=== PATIENT | female | born 1970 | race Hispanic/Latino ===

== ENCOUNTER 2017-08-02 20:04 | Emergency (ER) | payer SELFPAY ==
[~2017-08-02] VITALS: Ht 170.2 cm; Wt 62.1 kg
[2017-08-02] MEDS ORDERED: SODIUM CHLORIDE 0.9% 1000ML 1,000 ML IV ONE (20:45)
[2017-08-02 21:36] LABS: BASOPHILS % 0.3 % (0.0-1.0); EOSINOPHILS # (AUTO) 0.1 (0.0-0.4); EOSINOPHILS % 1.3 % (0.0-6.0); HEMATOCRIT 39.3 % (34.2-44.1); HEMOGLOBIN 12.4 g/dL (12.0-16.0); LYMPHOCYTES # (AUTO) 1.1 (1.0-3.2); LYMPHOCYTES % 9.6 % (18.0-39.1); MEAN CORPUSCULAR HEMOGLOBIN 28.1 pg (28-32); MEAN CORPUSCULAR HGB CONC 31.6 g/dL (31-35); MEAN CORPUSCULAR VOLUME 89.1 fL (81-99); MONOCYTES # (AUTO) 0.4 (0.2-0.8); MONOCYTES % 3.7 % (4.4-11.3); NEUTROPHILS # (AUTO) 9.4 (2.1-6.9); NEUTROPHILS % 84.8 % (38.7-80.0); PLATELET COUNT 441 x10e3/uL (140-360); RED BLOOD COUNT 4.41 x10e6/uL (3.6-5.1); RED CELL DISTRIBUTION WIDTH 13.1 % (11.7-14.4)
[2017-08-02 21:41] LABS: BILIRUBIN,URINE NEGATIVE (NEGATIVE); CLARITY,URINE SL CLOUDY (CLEAR); COLOR,URINE YELLOW (YELLOW); KETONES,URINE NEGATIVE (NEGATIVE); LEUKOCYTE ESTERASE ,URINE NEGATIVE (NEGATIVE); NITRITE,URINE NEGATIVE (NEGATIVE); PROTEIN,URINE DIPSTICK 1+ (NEGATIVE); URINE UROBILINOGEN 0.2 mg/dL (0.2 - 1)
[2017-08-02 21:44] LABS: AMPHETAMINES SCREEN,URINE NEGATIVE (NEGATIVE); BENZODIAZEPINES SCREEN,URINE NEGATIVE (NEGATIVE); PHENCYCLIDINE SCREEN,URINE NEGATIVE (NEGATIVE)
[2017-08-02] MEDS ORDERED: ONDANSETRON HCL INJ 2 MG/ML VIAL IV STA (21:45)
[2017-08-02 21:53] LABS: EPITHELIAL CELLS,URINE MANY /LPF; MUCUS,URINE MODERATE (RARE)
[2017-08-02 21:57] LABS: ALANINE AMINOTRANSFERASE 14 IU/L (0-55); ALBUMIN 4.1 g/dL (3.5-5.0); ALBUMIN/GLOBULIN RATIO 1.3 (0.8-2.0); ALKALINE PHOSPHATASE 72 IU/L (40-150); ANION GAP 15.2 mmol/L (8-16); BLOOD UREA NITROGEN 8 mg/dL (7-26); BUN/CREATININE RATIO 9 (6-25); CALCIUM 9.4 mg/dL (8.4-10.2); CARBON DIOXIDE 25 mmol/L (22-29); CHLORIDE 106 mmol/L (98-107); CREATINE KINASE 138 IU/L (29-168); CREATININE, SERUM 0.88 mg/dL (0.57-1.11); EST GLOMERULAR FILTRATION RATE > 60 ML/MIN (60-); GLUCOSE 88 mg/dL (74-118); POTASSIUM 3.2 mmol/L (3.5-5.1); SODIUM 143 mmol/L (136-145)
[2017-08-02 22:10] LABS: SALICYLATE < 5.0 mg/dL (0-30)
[2017-08-02 22:46] LABS: ACETAMINOPHEN < 3 ug/mL (10-30)
[2017-08-03 01:59] VITALS: BP_SYST 111
== END 2017-08-03 02:10 | disposition home or self-care (01) ==
LOC: ER 20:04
DX: T45.0X1A Poisoning by antiallergic and antiemetic drugs, accidental (unintentional), initial encounter (principal); Y92.019 Unspecified place in single-family (private) house as the place of occurrence of the external cause
CPT/HCPCS: 36415; 80053; 80307; 80329 ×2; 81001; 82550; 82553; 84484; 85025; 93005; 99283; J2405; J7030

== ENCOUNTER 2019-02-26 12:26 | Emergency (ER) | payer MEDICARE ==
[~2019-02-26] VITALS: Ht 170.2 cm; Wt 62.1 kg
--- OUTSIDE RECORDS SUMMARY | 2019-02-26 12:29 | XMS REPORT ---
Author Author [facility] Address Unknown Phone Unavailable Care Team Providers Care Notch Grinder Name Role Phone Unavailable Unavailable Payers Payer Name Policy Type Policy Number Effective Date Expiration Date Problems This patient has no known problems. Allergies, Adverse Reactions, Alerts Allergy Name Allergy Type Status Severity Reaction(s) Onset Date Inactive Date Treating Clinician Comments No Known Allergies DA Active U 2019-02-10 00:00:00 No Known Allergies DA Active U 2017-09-11 00:00:00 Medications This patient has no known medications. Encounters Start Date/Time End Date/Time Encounter Type Admission Type Attending Clinicians Care Facility Care Department Encounter ID 2019-04-08 00:00:00 2019-04-08 00:00:00 Outpatient [facility] [id number] 2019-03-31 00:00:00 2019-03-31 00:00:00 Outpatient [facility] [id number] 2019-03-04 00:00:00 2019-03-04 00:00:00 Outpatient [facility] [id number] 2019-02-18 00:00:00 2019-02-18 00:00:00 Outpatient [facility] [id number] 2019-01-30 13:17:38 2019-01-30 13:17:38 Outpatient [facility] [id number] 2019-01-22 12:25:32 2019-01-22 12:25:32 Outpatient [facility] [id number] 2019-01-22 00:00:00 2019-01-22 00:00:00 Outpatient [facility] [id number] 2019-01-16 00:00:00 2019-01-16 00:00:00 Outpatient [facility] [id number] 2019-01-10 00:00:00 2019-01-10 00:00:00 Outpatient [facility] [id number] 2019-01-10 00:00:00 2019-01-10 00:00:00 Outpatient [facility] [id number] 2019-01-09 09:41:39 2019-01-09 09:41:39 Outpatient [facility] [id number] 2019-01-08 07:50:57 2019-01-08 07:50:57 Outpatient [facility] [id number] 2019-01-08 00:00:00 2019-01-08 00:00:00 Outpatient [facility] [id number] 2018-12-25 09:12:49 2018-12-25 09:12:49 Outpatient [facility] [id number] 2018-12-25 00:00:00 2018-12-25 00:00:00 Outpatient [facility] [id number] 2018-12-25 00:00:00 2018-12-25 00:00:00 Outpatient [facility] [id number] 2018-12-25 00:00:00 2018-12-25 00:00:00 Outpatient [facility] [id number] 2018-12-24 08:33:31 2018-12-24 08:33:31 Outpatient [facility] [id number] 2018-12-24 08:31:11 2018-12-24 08:31:11 Outpatient [facility] [id number] 2018-12-23 08:11:16 2018-12-23 08:11:16 Outpatient [facility] [id number] 2018-12-19 16:23:49 2018-12-19 16:23:49 Outpatient [facility] [id number] 2018-12-19 15:52:50 2018-12-19 15:52:50 Outpatient [facility] [id number] 2018-12-19 14:00:01 2018-12-19 14:00:01 Outpatient [facility] [id number] 2018-12-19 00:00:00 2018-12-19 00:00:00 Outpatient [facility] [id number] 2018-12-19 00:00:00 2018-12-19 00:00:00 Outpatient [facility] [id number] 2018-12-17 00:00:00 2018-12-17 00:00:00 Outpatient [facility] [id number] 2018-12-13 00:00:00 2018-12-13 00:00:00 Outpatient [facility] [id number] 2018-12-06 14:51:11 2018-12-06 14:51:11 Outpatient [facility] [id number] 2018-12-03 14:34:08 2018-12-03 14:34:08 Outpatient [facility] [id number] 2018-12-03 12:49:16 2018-12-03 12:49:16 Outpatient [facility] [id number] 2018-12-03 00:00:00 2018-12-03 00:00:00 Outpatient [facility] [id number] 2018-11-25 00:00:00 2018-11-25 00:00:00 Outpatient [facility] [id number] 2018-11-25 00:00:00 2018-11-25 00:00:00 Outpatient [facility] [id number] 2018-11-21 08:26:30 2018-11-21 08:26:30 Outpatient [facility] [id number] 2018-11-14 09:49:36 2018-11-14 09:49:36 Outpatient [facility] [id number] 2018-11-12 12:45:02 2018-11-12 12:45:02 Outpatient [facility] [id number] 2018-11-07 10:15:37 2018-11-07 10:15:37 Outpatient [facility] [id number] 2018-11-04 00:00:00 2018-11-04 00:00:00 Outpatient [facility] [id number] 2018-11-04 00:00:00 2018-11-04 00:00:00 Outpatient [facility] [id number] 2018-10-25 12:48:03 2018-10-25 12:48:03 Outpatient [facility] [id number] 2018-10-18 00:00:00 2018-10-18 00:00:00 Outpatient [facility] [id number] 2018-10-17 00:00:00 2018-10-17 00:00:00 Outpatient [facility] [id number] 2018-10-10 09:47:24 2018-10-10 09:47:24 Outpatient [facility] [id number] 2018-09-27 09:17:55 2018-09-27 09:17:55 Outpatient [facility] [id number] 2018-09-26 12:55:38 2018-09-26 12:55:38 Outpatient [facility] [id number] 2018-09-26 11:59:44 2018-09-26 11:59:44 Outpatient [facility] [id number] 2018-09-26 10:24:59 2018-09-26 10:24:59 Outpatient [facility] [id number] 2018-08-09 12:26:12 2018-08-09 12:26:12 Outpatient [facility] [id number] 2018-08-05 13:01:30 2018-08-05 13:01:30 Outpatient [facility] [id number] 2018-07-25 10:15:33 2018-07-25 10:15:33 Outpatient [facility] [id number] 2018-07-12 13:42:40 2018-07-12 13:42:40 Outpatient [facility] [id number] 2018-07-03 21:57:48 2018-07-03 21:57:48 Emergency [facility] [id number] 2018-07-03 20:01:25 2018-07-03 20:01:25 Emergency [facility] [id number] 2018-07-02 19:19:00 2018-07-02 19:19:00 Emergency [facility] [id number] 2018-06-28 06:19:00 2018-06-28 06:19:00 Outpatient [facility] [id number] 2018-06-28 00:00:00 2018-06-28 00:00:00 Outpatient [facility] [id number] 2018-06-21 13:33:08 2018-06-21 13:33:08 Outpatient [facility] [id number] 2018-06-21 11:30:50 2018-06-21 11:30:50 Outpatient [facility] [id number] 2018-06-21 00:00:00 2018-06-21 00:00:00 Outpatient [facility] [id number] 2018-06-20 00:00:00 2018-06-20 00:00:00 Outpatient [facility] [id number] 2018-06-19 09:17:31 2018-06-19 09:17:31 Outpatient [facility] [id number] 2018-06-13 00:00:00 2018-06-13 00:00:00 Outpatient [facility] [id number] 2018-06-13 00:00:00 2018-06-13 00:00:00 Outpatient [facility] [id number] 2018-06-03 14:59:57 2018-06-03 14:59:57 Outpatient [facility] [id number] 2018-05-31 11:54:25 2018-05-31 11:54:25 Outpatient [facility] [id number] 2018-05-22 00:00:00 2018-05-22 00:00:00 Outpatient [facility] [id number] 2018-05-16 13:20:06 2018-05-16 13:20:06 Outpatient [facility] [id number] 2018-04-25 13:06:31 2018-04-25 13:06:31 Outpatient [facility] [id number] 2018-04-19 09:19:49 2018-04-19 09:19:49 Outpatient [facility] [id number] 2018-04-12 12:04:38 2018-04-12 12:04:38 Emergency [facility] [id number] 2018-04-12 11:25:56 2018-04-12 11:25:56 Emergency [facility] [id number] 2018-04-12 09:45:17 2018-04-12 09:45:17 Outpatient [facility] [id number] 2018-03-28 09:05:15 2018-03-28 09:05:15 Outpatient [facility] [id number] 2018-03-26 13:08:11 2018-03-26 13:08:11 Outpatient [facility] [id number] 2018-03-18 00:00:00 2018-03-18 00:00:00 Outpatient [facility] [id number] 2018-03-11 00:00:00 2018-03-11 00:00:00 Outpatient [facility] [id number] 2018-03-06 10:00:27 2018-03-06 10:00:27 Outpatient [facility] [id number] 2018-03-05 13:15:17 2018-03-05 13:15:17 Outpatient [facility] [id number] 2018-03-01 08:07:34 2018-03-01 08:07:34 Outpatient [facility] [id number] 2018-02-26 13:16:53 2018-02-26 13:16:53 Outpatient [facility] [id number] 2018-02-19 11:28:40 2018-02-19 11:28:40 Outpatient [facility] [id number] 2018-02-13 06:04:00 2018-02-13 06:04:00 Outpatient [facility] [id number] 2018-02-11 13:38:12 2018-02-11 13:38:12 Outpatient [facility] [id number] 2018-02-01 14:16:59 2018-02-01 14:16:59 Outpatient [facility] [id number] 2018-01-30 09:09:53 2018-01-30 09:09:53 Outpatient [facility] [id number] 2018-01-28 13:03:47 2018-01-28 13:03:47 Outpatient [facility] [id number] 2018-01-22 06:02:00 2018-01-22 06:02:00 Outpatient [facility] [id number] 2018-01-22 00:00:00 2018-01-22 00:00:00 Outpatient [facility] [id number] 2018-01-15 12:47:27 2018-01-15 12:47:27 Outpatient [facility] [id number] 2018-01-15 00:00:00 2018-01-15 00:00:00 Outpatient [facility] [id number] 2018-01-11 08:48:06 2018-01-11 08:48:06 Outpatient [facility] [id number] 2018-01-10 09:39:04 2018-01-10 09:39:04 Outpatient [facility] [id number] 2018-01-10 00:00:00 2018-01-10 00:00:00 Outpatient [facility] [id number] 2018-01-08 12:51:43 2018-01-08 12:51:43 Outpatient [facility] [id number] 2018-01-07 09:01:56 2018-01-07 09:01:56 Outpatient [facility] [id number] 2018-01-07 00:00:00 2018-01-07 00:00:00 Outpatient [facility] [id number] 2018-01-01 10:29:41 2018-01-01 10:29:41 Outpatient [facility] [id number] 2017-12-24 13:44:22 2017-12-24 13:44:22 Outpatient [facility] [id number] 2017-12-24 00:00:00 2017-12-24 00:00:00 Outpatient [facility] [id number] 2017-12-19 07:17:59 2017-12-19 07:17:59 Outpatient [facility] [id number] 2017-12-18 11:16:21 2017-12-18 11:16:21 Outpatient [facility] [id number] 2017-12-13 10:53:02 2017-12-13 10:53:02 Outpatient [facility] [id number] 2017-12-11 07:35:50 2017-12-11 07:35:50 Outpatient [facility] [id number] 2017-12-06 17:26:00 2017-12-06 17:26:00 Emergency [facility] [id number] 2017-11-16 14:25:45 2017-11-16 14:25:45 Outpatient [facility] [id number] 2017-11-13 08:23:24 2017-11-13 08:23:24 Outpatient [facility] [id number] 2017-11-05 08:56:07 2017-11-05 08:56:07 Outpatient [facility] [id number] 2017-11-01 14:28:32 2017-11-01 14:28:32 Outpatient [facility] [id number] 2017-11-01 13:19:27 2017-11-01 13:19:27 Outpatient [facility] [id number] 2017-10-29 18:00:27 2017-10-29 18:00:27 Outpatient [facility] [id number] 2017-10-29 10:36:29 2017-10-29 10:36:29 Outpatient [facility] [id number] 2017-10-23 10:29:55 2017-10-23 10:29:55 Outpatient [facility] [id number] 2017-09-25 11:23:36 2017-09-25 11:23:36 Emergency [facility] [id number] 2017-09-25 11:17:34 2017-09-25 11:17:34 Emergency [facility] [id number]
[2019-02-26] MEDS ORDERED: NEOMYCIN/POLYMYX/HYDROC (OTIC) 10 ML BTL OT STA (13:09)
[2019-02-26 13:12] VITALS: BP 116/55
[2019-02-26] MEDS ORDERED: CORTISPORIN-TC10 ML RIGHT EAR (13:38)
== END 2019-02-26 13:48 | disposition home or self-care (01) ==
LOC: ER 12:26
DX: H60.91 Unspecified otitis externa, right ear (principal); H60.11 Cellulitis of right external ear; J45.909 Unspecified asthma, uncomplicated; K21.9 Gastro-esophageal reflux disease without esophagitis
CPT/HCPCS: 99282

== ENCOUNTER → 2019-09-16 | Day surgery (SDC) | payer OTHER ==
[2019-09-12 14:10] LABS: BASOPHILS % 0.4 % (0.0-1.0); EOSINOPHILS # (AUTO) 0.3 (0.0-0.4); EOSINOPHILS % 2.5 % (0.0-6.0); HEMATOCRIT 44.9 % (34.2-44.1); HEMOGLOBIN 14.5 g/dL (12.0-16.0); LYMPHOCYTES # (AUTO) 1.8 (1.0-3.2); LYMPHOCYTES % 17.5 % (18.0-39.1); MEAN CORPUSCULAR HEMOGLOBIN 28.9 pg (28-32); MEAN CORPUSCULAR HGB CONC 32.3 g/dL (31-35); MEAN CORPUSCULAR VOLUME 89.6 fL (81-99); MONOCYTES # (AUTO) 0.5 (0.2-0.8); MONOCYTES % 5.2 % (4.4-11.3); NEUTROPHILS # (AUTO) 7.6 (2.1-6.9); NEUTROPHILS % 74.1 % (38.7-80.0); PLATELET COUNT 429 x10e3/uL (140-360); RED BLOOD COUNT 5.01 x10e6/uL (3.6-5.1); RED CELL DISTRIBUTION WIDTH 13.1 % (11.7-14.4)
--- NOTE | 2019-09-12 14:48 | Diagnostic Imaging Report ---
EXAMINATION: CHEST 2 VIEWS INDICATION: Pre-operative COMPARISON: None FINDINGS: LINES/TUBES:None LUNGS:The lungs are well-inflated. No focal consolidation or pulmonary edema. PLEURA:No pleural effusion or pneumothorax. MEDIASTINUM:The cardiomediastinal silhouette appears normal in size and shape. BONES/SOFT TISSUES:No acute osseous injury. ABDOMEN:No free air under the diaphragm. IMPRESSION: No focal pneumonia or pulmonary edema. Signed by: Hoang Sharp MD on 09/12/2019 2:44 PM
[~2019-09-16] MED LIST: ACETAMINOPHEN325 M1 PO; ADVAIR 250-501 EACH INH; BENZONATATE100 MG PO; CEFAZOLIN SOD 1 GM/NS 50ML 50 ML IV ONE; CORTISPORIN-TC10 ML RIGHT EAR; DEXAMETHASONE SOD PHOS INJ 4 MG/ML VIAL ONE; DIPHENHYDRAMINE HCL INJ 50 MG/ML VIAL ONE; FENTANYL CITRATE/PF 100MCG/2 ML INJ ONE; KETOROLAC TROMETHAMINE 30 MG/ML VIAL ONE; LIDOCAINE HCL 2% LOCAL INJ 5 ML SDV VIAL INJ ONE; METOCLOPRAMIDE HCL 10 MG/2ML VIAL ONE; MIDAZOLAM HCL 2 MG/2 ML VIAL ONE; OMEPRAZOLE40 MG PO; ONDANSETRON HCL INJ 2MG/ML 2ML 2 MG/ML VIAL ONE; PROPOFOL IV EMULSION 10 MG/ML 20 ML VIAL ONE; PROVENTIL HFA6.7 GM INH; SEVOFLURANE INHAL SOLN 250 ML PEN BTL ONE; TYLENOL WITH C1 EACH PO
--- OUTSIDE RECORDS SUMMARY | 2019-09-16 05:43 | XMS REPORT | Clinical Summary ---
Author Author [facility] ict Organization [facility] ict Address Unknown Phone Unavailable Care Team Providers Care Miner Assistant Name Role Phone Ileana Cheema MD PCP Gabriela Green NP PCP Allergies Comments Active Allergy Reactions Severity Noted Date Tomato Itching 03/06/2018 Tramadol Itching, 11/16/2017 Nausea and Vomiting Medications End Date Status Medication Sig Dispensed Refills Start Date Active ferrous sulfate 325 mg Take 1 tablet 60 tablet 3 0 (65 mg iron) by mouth 2 9 tabletIndications: times daily. Abnormal uterine bleeding, Iron deficiency anemia due to chronic blood loss Active diclofenac (VOLTAREN) 1 % Apply 2 g to 100 g 1 gelIndications: affected area 9 Arthralgia of left knee, 4 times daily Primary osteoarthritis of Apply to left left knee, Pain in joint knee and left of left shoulder, Rotator shoulder as cuff tendonitis, left needed. Active fluticasone Inhale 1 Puff 180 Each 1 propion-salmeterol by mouth 2 9 (ADVAIR DISKUS) 250-50 times daily. mcg/dose diskus inhalerIndications: Moderate persistent asthma with acute exacerbation Active clobetasol propionate Apply to 30 g 2 (TEMOVATE E) 0.05 % affected area 0 emollient 2 times creamIndications: Other daily. specified dermatitis Active omeprazole (PRILOSEC) 20 Take 1 90 capsule 1 0 mg delayed release capsule by 0 capsuleIndications: mouth daily. Gastroesophageal reflux disease without esophagitis Active gabapentin (NEURONTIN) Take 1 90 capsule 0 300 mg capsule by 0 capsuleIndications: Acute mouth 3 times pain of left knee daily. Active codeine-guaiFENesin Take 5 mL by 120 mL 0 07/06 (CHERATUSSIN AC) 10-100 mouth 3 times 0 mg/5 mL syrupIndications: daily as Chronic bronchitis with needed for productive mucopurulent Cough or cough Congestion. Active ibuprofen (MOTRIN) 600 mg Take 1 tablet 30 tablet 0 tabletIndications: Right by mouth 0 elbow pain every 8 hours as needed for Pain. Active albuterol 90 Inhale 2 18 g 1 mcg/actuation Puffs by 0 inhalerIndications: mouth every 4 History of asthma hours as needed for Wheezing or Shortness of Breath (Cough) Please fill today. 04/01/2019 Discontinued albuterol 90 Inhale 2 20.1 g 0 mcg/actuation Puffs by 8 inhalerIndications: mouth 4 times Moderate persistent daily as asthma with acute needed for exacerbation Wheezing. 04/01/2019 Discontinued fluticasone Inhale 1 Puff 180 Each 1 propion-salmeterol by mouth 2 8 (ADVAIR DISKUS) 250-50 times daily. mcg/dose diskus inhalerIndications: Moderate persistent asthma with acute exacerbation 06/02/2019 Discontinued (Reorder) clobetasol propionate Apply to 30 g 2 03/31 (TEMOVATE E) 0.05 % affected area 8 emollient 2 times creamIndications: Other daily. specified dermatitis 09/27/2018 Discontinued (Reorder) acetaminophen-codeine Take 1 tablet 30 tablet 0 (TYLENOL/CODEINE #3) by mouth 9 300-30 mg per every 4 hours tabletIndications: as needed for Complex tear of lateral Pain. meniscus of left knee as current injury, initial encounter 09/27/2018 Discontinued (Reorder) ibuprofen (MOTRIN) 600 mg Take 1 tablet 30 tablet 0 tabletIndications: Right by mouth 9 elbow pain every 8 hours as needed for Pain. 06/16/2019 Discontinued (Reorder) gabapentin (NEURONTIN) Take 1 30 capsule 0 300 mg capsule by 9 capsuleIndications: Acute mouth 3 times pain of left knee daily. 12/03/2018 Discontinued (Therapy comple val) omeprazole (PRILOSEC) 20 Take 1 28 capsule 0 0 mg delayed release capsule by 9 capsuleIndications: mouth 2 times Gastroesophageal reflux daily. disease with esophagitis 09/27/2018 sodium hyaluronate 2 mL by 6 mL 0 01 (HYALGAN) 10 mg/mL INTRA-ARTICUL 9 injectionIndications: AR route once Arthralgia of left knee, for 1 dose Primary osteoarthritis of Please left knee dispense 3 prefilled syringes of hyalgan (20mg/2ml) for series of three weekly injections into left knee to be administered in clinic. 01/24/2019 Discontinued (Therapy comple val) esomeprazole (NEXIUM) 20 Take 1 90 capsule 0 0 mg delayed release capsule by 9 capsuleIndications: mouth every Gastroesophageal reflux morning disease, esophagitis (before presence not specified breakfast). 03/04/2019 Discontinued (Reorder) ibuprofen (MOTRIN) 600 mg Take 1 tablet 30 tablet 0 tabletIndications: Right by mouth 9 elbow pain every 8 hours as needed for Pain. 07/07/2019 Discontinued (Therapy comple val) acetaminophen-codeine Take 1 tablet 30 tablet 0 (TYLENOL/CODEINE #3) by mouth 9 300-30 mg per every 8 hours tabletIndications: as needed for Complex tear of lateral Pain. meniscus of left knee as current injury, initial encounter 01/14/2019 azithromycin (ZITHROMAX) Take 2 6 Each 0 0 250 mg tabletIndications: tablets by 9 Acute bronchitis, mouth on the unspecified organism first day, then take one tablet every day for the next 4 days. 02/16/2019 Bismuth Subcit Take 3 120 capsule 0 Q-Ebbhjwzwr-LEX (PYLERA) capsules by 9 140-125-125 mg delayed mouth 4 times release daily (after capsuleIndications: H. meals and pylori infection nightly) for 10 days. 02/16/2019 omeprazole (PRILOSEC) 20 Take 2 40 capsule 0 0 mg delayed release capsules by 9 capsuleIndications: H. mouth 2 times pylori infection daily for 10 days. 03/10/2019 methylPREDNISolone Follow 21 tablet 0 (MEDROL, ANNELISE,) 4 mg dose directions 9 packIndications: Plantar from dose fascial fibromatosis pack and/or instructions from MD. 03/14/2019 levoFLOXacin (LEVAQUIN) Take 1 tablet 10 tablet 0 750 mg tabletIndications: by mouth 9 Hearing loss of right daily for 10 ear, unspecified hearing days. loss type, Chronic suppurative otitis media of right ear, unspecified otitis media location 06/02/2019 Discontinued (Reorder) ibuprofen (MOTRIN) 600 mg Take 1 tablet 30 tablet 0 tabletIndications: Right by mouth 9 elbow pain every 8 hours as needed for Pain. 04/01/2019 Discontinued esomeprazole (NEXIUM) 20 Take 1 90 capsule 0 1 mg delayed release capsule by 9 capsuleIndications: mouth every Gastroesophageal reflux morning disease, esophagitis (before presence not specified breakfast). 03/19/2019 fluconazole (DIFLUCAN) Take 1 tablet 1 tablet 0 1 150 mg tabletIndications: by mouth once 9 Vaginitis and for 1 dose. vulvovaginitis 06/16/2019 Discontinued (Reorder) albuterol 90 Inhale 2 20.1 g 0 mcg/actuation Puffs by 9 inhalerIndications: mouth 4 times Moderate persistent daily as asthma with acute needed for exacerbation Wheezing. 06/06/2019 Discontinued (Alternate ther apy) esomeprazole (NEXIUM) 20 Take 1 90 capsule 0 1 mg delayed release capsule by 9 capsuleIndications: mouth every Gastroesophageal reflux morning disease, esophagitis (before presence not specified breakfast). 07/17/2019 Discontinued ibuprofen (MOTRIN) 600 mg Take 1 tablet 30 tablet 0 tabletIndications: Right by mouth 0 elbow pain every 8 hours as needed for Pain. 07/10/2019 Discontinued albuterol 90 Inhale 2 20.1 g 0 mcg/actuation Puffs by 0 inhalerIndications: mouth 4 times Moderate persistent daily as asthma with acute needed for exacerbation Wheezing. 07/07/2019 Discontinued (Reorder) codeine-guaiFENesin Take 5 mL by 120 mL 0 06/16 (CHERATUSSIN AC) 10-100 mouth 3 times 0 mg/5 mL syrupIndications: daily as Chronic bronchitis with needed for productive mucopurulent Cough or cough Congestion. 06/21/2019 azithromycin (ZITHROMAX) Take 2 6 Each 0 0 250 mg tabletIndications: tablets by 0 Chronic bronchitis with mouth on the productive mucopurulent first day, cough then take one tablet every day for the next 4 days. 07/17/2019 Discontinued (Reorder) albuterol 90 Inhale 2 18 g 0 mcg/actuation Puffs by 0 inhalerIndications: mouth 4 times Moderate persistent daily as asthma with acute needed for exacerbation Wheezing. 09/02/2019 Discontinued (Reorder) albuterol 90 Inhale 2 18 g 1 mcg/actuation Puffs by 0 inhalerIndications: mouth 4 times Moderate persistent daily as asthma with acute needed for exacerbation Wheezing. 09/12/2019 benzonatate (TESSALON Take 1 20 capsule 0 PERLES) 100 mg capsule by 0 capsuleIndications: Cough mouth 3 times daily as needed for up to 7 days for Cough Please fill today. Status Hospital, Clinic, or Ordered Dose Route Frequency Start End Date Other Facility Date Administered Medication Active albuterol (PROVENTIL) 2.5 2.5 mg IN PRN 07/07/19 mg /3 mL (0.083 %) 20 0 nebulized solution 2.5 mgIndications: Chronic bronchitis with productive mucopurulent cough Ended triamcinolone acetonide 40 mg IX ONCE 09/27/19 (KENALOG-40) injection 40 19 9 mgIndications: Arthralgia of left knee, Primary osteoarthritis of left knee, Effusion of left knee Ended lidocaine (PF) 10 mL IJ ONCE 09/27/19 09/27/19 1 (XYLOCAINE) 10 mg/mL (1 19 9 %) injection 10 mLIndications: Arthralgia of left knee, Primary osteoarthritis of left knee, Effusion of left knee Ended povidone-iodine 1 Application TP ONCE 09/27/19 (BETADINE) 10 % topical 19 9 applicator 1 ApplicationIndications: Arthralgia of left knee, Primary osteoarthritis of left knee, Effusion of left knee Ended povidone-iodine 1 Application TP ONCE 09/27/19 (BETADINE) 10 % topical 19 9 applicator 1 Application Ended lidocaine 2%-epinephrine 40 mL IJ ONCE 09/27/19 1:100,000 2 %-1:100,000 19 9 injection 40 mL Ended aecdtvay-lwsgbxuim-vsdofn 1 Packet TP 3 TIMES DAILY 08/30 daisy (TRIPLE ANTIBIOTIC) 19 9 topical packet 1 Packet Ended triamcinolone acetonide 40 mg IX ONCE 10/11/19 (KENALOG-40) injection 40 19 9 mgIndications: Arthralgia of left shoulder region, Tendinitis of left rotator cuff Ended lidocaine (PF) 10 mL IJ ONCE 10/11/19 10/11/19 1 (XYLOCAINE) 10 mg/mL (1 19 9 %) injection 10 mLIndications: Arthralgia of left shoulder region, Tendinitis of left rotator cuff Ended povidone-iodine 1 Application TP ONCE 10/11/19 (BETADINE) 10 % topical 19 9 applicator 1 ApplicationIndications: Arthralgia of left shoulder region, Tendinitis of left rotator cuff Ended povidone-iodine 1 Application TP ONCE 11/08/19 (BETADINE) 10 % topical 19 9 applicator 1 Application Ended povidone-iodine 1 Application TP ONCE 11/15/19 (BETADINE) 10 % topical 19 9 applicator 1 ApplicationIndications: Arthralgia of left knee, Primary osteoarthritis of left knee Ended povidone-iodine 1 Application TP ONCE 12/24/19 (BETADINE) 10 % topical 19 9 applicator 1 ApplicationIndications: Arthralgia of left knee, Primary osteoarthritis of left knee Ended triamcinolone acetonide 40 mg IX ONCE 01/31/20 (KENALOG-40) injection 40 19 9 mgIndications: Arthralgia of left shoulder region Ended lidocaine (PF) 10 mL IJ ONCE 01/31/20 01/31/20 1 (XYLOCAINE) 10 mg/mL (1 19 9 %) injection 10 mLIndications: Arthralgia of left shoulder region Active Problems Problem Noted Date Primary osteoarthritis of left knee 11/07/2018 Abnormal uterine bleeding (AUB) 06/06/2018 Overview: Added automatically from request for mundo pryor [id number] Fibroids, intramural 05/31/2018 Pelvic pain 05/31/2018 Impaired gait and mobility 02/19/2018 Chronic periodontitis, generalized, moderate 018 Lateral meniscus tear 01/22/2018 Overview: Added automatically from request for mundo pryor [id number] Complex tear of lateral meniscus of left knee as curr ent injury 01/07/2018 Overview: Added automatically from request for mundo pryor [id number] Abnormal uterine bleeding 01/01/2018 Chronic periodontitis 12/13/2017 Iron deficiency anemia 11/13/2017 Arthralgia of left knee 09/25/2017 Encounters Care Team Description Date Type Specialty Doug Allen, TATO Ingrowing nail (Primary Dx) 09/09/2019 Office Visit Podiatry Hazel Ocampo NP Cough (Primary Dx); History of asthma 09/02/2019 E-Visit Family Practice Garima Calle RN 07/25/2019 Nurse Triage Ileana Cheema MD Right elbow pain; Chronic bronchitis with productive mucopurulent cough 07/17/2019 Refill [facility] Ileana Cheema MD Moderate persistent asthma with acute ex acerbation 07/17/2019 Refill Family Practice Ileana Cheema MD Moderate persistent asthma with acute ex acerbation 07/10/2019 Refill [facility] Ileana Cheema MD Chronic bronchitis with productive mucop urulent cough (Primary Dx) 07/07/2019 Office Visit [facility] Ileana Cheema MD Chronic bronchitis with productive mucop urulent cough 07/07/2019 Orders Only Family Practice Ileana Cheema MD Moderate persistent asthma with acute ex acerbation 06/16/2019 Ancillary Radiology Procedure Ileana Cheema MD Chronic bronchitis with productive mucop urulent cough (Primary Dx); Moderate persistent asthma with acute exacerbation; Acute pain of left knee 06/16/2019 Office Visit Family Practice Ileana Cheema MD Gastroesophageal reflux disease without esophagitis (Primary Dx) 06/06/2019 Orders Only [facility] Practice Gal Whittington Jr., MD Right elbow pain 06/02/2019 Refill Family Practice Ileana Cheema MD Other specified dermatitis 06/02/2019 Refill Family Practice Ileana Cheema MD Moderate persistent asthma with acute ex acerbation; Gastroesophageal reflux disease, esophagitis presence not specified 04/01/2019 Refill Family Practice Corwin Brantley MD Impacted cerumen of right ear (Primary D x) 03/24/2019 Office Visit Ent-Otolaryngology Roxana Faria RN 03/12/2019 Nurse Triage Mayuri Bill 03/11/2019 Nutrition Nutrition Hesham Mejia RN 03/11/2019 Clinical Case Social Work Mgt Ileana Cheema MD Shelton, George Jr., MD Need for influenza vaccination (Primary Dx); Hearing loss of right ear, unspecified hearing loss type; Chronic suppurative otitis media of right ear, unspecified otitis media location; Right elbow pain 03/04/2019 Office Visit [facility] Doug Allen, TATO Plantar fascial fibromatosis 03/04/2019 Ancillary Radiology Procedure Ileana Cheema MD Griert, Jeffery M, TATO Plantar fascial fibromatosis (Primary Dx ) 03/04/2019 Office Visit Podiatry Gal Whittington Jr., MD Hearing loss of right ear, unspecified h earing loss type; Chronic suppurative otitis media of right ear, unspecified otitis media location 03/04/2019 Orders Only Family Practice Kourtney Gong RN 02/10/2019 Nurse Triage Bob Bell RN 02/10/2019 Nurse Triage Bob Bell RN 02/09/2019 Nurse Triage Kerline Velez MD Acute pain of left knee 02/04/2019 Refill tool chaser Margareth Malone MD Arthralgia of left shoulder region (Prim francoise Dx); Tendinitis of left rotator cuff; Primary osteoarthritis of left knee 01/30/2019 Office Visit Orthopedics Margareth Malone MD Arthralgia of left shoulder region; Tendinitis of left rotator cuff; Primary osteoarthritis of left knee 01/30/2019 Orders Only Orthopedics Amy Meadows NP History of Helicobacter pylori infection (Primary Dx); H. pylori infection 01/24/2019 Orders Only Gastroenterology Mayuri Esteban, Physician Mounika Ramirez ResidentMD 01/22/2019 Anesthesia Gastroenterology Event Amy Meadows NP Munot, Khushboo, MD Arthralgia of left knee (Primary Dx); Chronic periodontitis; Abnormal uterine bleeding; Chronic periodontitis, generalized, moderate; Impaired gait and mobility; Fibroids, intramural; Pelvic pain; Abnormal uterine bleeding (AUB); Primary osteoarthritis of left knee 01/22/2019 Hospital Encounter Izabela Rojas MD Palpitations (Primary Dx); Acute bronchitis, unspecified organism 01/09/2019 Office Visit Family Practice Leighann Corona NP Tzan, Kevin, MD 01/08/2019 Hospital Encounter Ileana Cheema MD Hypoglycemia; Hypotension, unspecified hypotension type 12/25/2018 Lab Appointment Lab Frantz Mays MD Hypoglycemia (Primary Dx); Hypotension, unspecified hypotension type 12/25/2018 Orders Only [facility] Ileana Cheema MD Alanis, Melissa R 12/24/2018 Hospital Cardiology Encounter Ileana Cheema MD 12/24/2018 Hospital Encounter Margareth Malone MD Arthralgia of left knee (Primary Dx); Primary osteoarthritis of left knee; Pain in joint of left shoulder; Rotator cuff tendonitis, left 12/23/2018 Office Visit Orthopedics Margareth Malone MD Pain in joint of left shoulder; Rotator cuff tendonitis, left 12/23/2018 Orders Only Orthopedics Ileana Cheema MD Right wrist pain 12/19/2018 Ancillary Radiology Procedure Ileana Cheema MD Hypotension, unspecified hypotension typ e (Primary Dx); Hypoglycemia; Right wrist pain; Impacted cerumen, right ear 12/19/2018 Office Visit [facility] Amy Meadows NP Abnormal UGI series (Primary Dx) 12/09/2018 Orders Only Gastroenterology Rogelio Canseco MD Impacted cerumen of right ear (Primary D x) 12/06/2018 Same Day Family Practice Junior Coelho, JAMES 12/06/2018 Nurse Triage Ileana Cheema MD Intermittent palpitations (Primary Dx); Abnormal barium swallow; Gastroesophageal reflux disease with esophagitis; Impacted cerumen of right ear 12/03/2018 Office Visit Family Practice Ileana Cheema MD Intermittent palpitations; Impacted cerumen of right ear 12/03/2018 Orders Only [facility] Practice Ileana Cheema MD Esophageal dysphagia 11/21/2018 Hospital Radiology Encounter Margareth Malone MD Arthralgia of left knee (Primary Dx); Primary osteoarthritis of left knee 11/14/2018 Office Visit Orthopedics Fransisco Ricardo MD Dysphagia, unspecified type (Primary Dx) 11/12/2018 Office Visit Ent-Otolaryngology Margareth Malone MD 11/07/2018 Office Visit Orthopedics Ileana Cheema MD Breast cancer screening 10/25/2018 Ancillary Radiology Procedure Linda Regan RN 10/21/2018 Nurse Triage Hazel Ocampo NP 10/21/2018 E-Visit Family Practice Margareth Malone MD Arthralgia of left shoulder region (Prim francoise Dx); Tendinitis of left rotator cuff 10/10/2018 Office Visit Orthopedics Jaime Huff MD 09/28/2018 E-Consult Gastroenterology Ileana Cheema MD Esophageal dysphagia (Primary Dx); Gastroesophageal reflux disease, esophagitis presence not specified; Mild intermittent asthma without complication; Right elbow pain; Complex tear of lateral meniscus of left knee as current injury, initial encounter; Breast cancer screening 09/27/2018 Office Visit Family Practice Caroline Cason MD Neoplasm of uncertain behavior of skin ( Primary Dx) 09/26/2018 Office Visit Dermatology Ileana Cheema MD Acute pain of left shoulder 09/26/2018 Hospital Radiology Encounter Margareth Malone MD Arthralgia of left knee (Primary Dx); Primary osteoarthritis of left knee; Effusion of left knee; Acute pain of left shoulder; Tendinitis of left rotator cuff 09/26/2018 Office Visit Orthopedics after 09/15/2018 Immunizations Name Administration Dates Next Due Influenza, 03/04/2019, 02/01/2018 Vaccine<FLUCELVAX>(Multi- Dose) Pneumococcal Conjugate 09/28/2015 <Unspecified> Tdap (Tetanus Toxoid, 10/23/2017 Reduced Diphtheria Toxoid And Acellular Pertussis, Absorbed) Family History Medical History Relation Name Comments Congenital heart disease Father had AICD Lung cancer Father Arthritis Mother COPD Mother Hypertension Mother Osteoporosis Mother Pulmonary Mother Relation Name Status Comments Brother Alive 2 brother Brother (Age new born) Daughter Alive Daughter Alive Father heart (Age 83) Maternal Grandfather Maternal Grandmother Mother Alive Paternal Grandfather Paternal Grandmother Sister Alive 4 sisters Son Alive Son Alive Social History Date Tobacco Use Types Packs/Day Years Used Quit: 09/22/2017 Light Tobacco Smoker Smokeless Tobacco: Never Used Tobacco Cessation: Ready to Quit: No; Co unseling Given: Yes Comments: quit a month ago in August 2017 Drinks/Week oz/Week Comments Alcohol Use No Food Insecurity Answer Date Recorded Within the past 12 months, you worried that your Never benjamín e 09/26/2018 food would run out before you got money to buy more. Within the past 12 months, the food you bought Never true 09/26/2018 just didn't last and you didn't have mo almas to get more. Sex Assigned at Date Recorded Not on file Industry Job Start Date Occupation Not on file Not on file Not on file Travel End Travel History Travel Start No recent travel history available. Date Recorded COVID-19 Exposure Response 09/15/2019 5:46 PM CDT In the last month, have you been in contact with No / Unsure someone who was confirmed or suspected to have Coronavirus / COVID-19? Last Filed Vital Signs Reading Time Taken Comments Vital Sign 98/54 09/09/2019 11:32 AM CDT Blood Pressure 82 09/09/2019 11:32 AM CDT Pulse 36.6 C (97.8 F) 09/09/2019 11:32 AM CDT Temperature 18 09/09/2019 11:32 AM CDT Respiratory Rate 100% 07/07/2019 3:53 PM CDT Oxygen Saturation - - Inhaled Oxygen Concentration 68.7 kg (151 lb 6.4 oz) 09/09/2019 11:32 AM CDT Weight 170.2 cm (5' 7") 09/09/2019 11:32 AM CDT Height 23.71 09/09/2019 11:32 AM CDT Body Mass Index Plan of Treatment Care Team Description Date Type Specialty Gabriela Green V, WELDER/INSTALLER [address] [place] [address] [phone] HAS BEEN HAVING COUGH FOR 2 WEEKS, NEGAT IV RESULTS PT IS HAVING SURGERY TOMORROW 09/17/2019 Telemedicine Family Practice Health Maintenance Due Date Last Done Comments Breast Cancer Scrn 10/26/2019 10/25/2018, 018 (Yearly) IMM Influenza Seasonal 01/29/2020 03/04/2019, 08/2017 to June (>/= 19 yrs) Cervical Cancer Scrn (3 12/18/2020 12/18/2017 Yrs) Goals Goal Patient Associated Recent Progress Patient-Stat Aut hor Goal Type Problems ed? Reduce pain Lifestyle No Caridad Corbett, ASSISTANT ATHLETIC TRAINER Procedures Comments Procedure Name Priority Date/Time Associated Diag nosis XRAY CHEST 2 VIEWS Routine 06/16/2019 Moderate pe rsistent 2:19 PM MECHANICAL PLANNER asthma with acute exacerbation XRAY FOOT 3 VIEWS MIN Routine 03/04/2019 Plantar fascial 11:33 AM MECHANICAL PLANNER fibromatosis TISSUE EXAM Routine 01/22/2019 Arthralgia of l eft knee 1:59 PM CDT Chronic periodontitis Abnormal uterine bleeding Chronic periodontitis, generalized, moderate Impaired gait and mobility Fibroids, intramural Pelvic pain Abnormal uterine bleeding (AUB) Primary osteoarthritis of left knee CORTISOL, TOTAL Add-on 12/25/2018 Hypoglycemia 10:19 AM CDT Hypotension, unspecified hypotension type ADRENOCORTICOTROPIC Routine 12/25/2018 Hypotensio n, unspecified HORMONE (ACTH), PLASMA 9:16 AM CDT hypotension ty pe Hypoglycemia 24 HOUR HOLTER MONITOR Routine 12/24/2018 Intermi ttent palpitations 9:17 AM CDT TRANSTHORACIC ECHO (TTE) Routine 12/24/2018 Inter mittent palpitations 8:42 AM CDT H. PYLORI STOOL AG Routine 12/19/2018 Gastroesoph ageal reflux 4:24 PM CDT disease with esophagitis XRAY WRIST 3 VIEWS MIN Routine 12/19/2018 Right w rist pain 3:55 PM CDT EGD Routine 12/09/2018 Abnormal UGI se nacho 12:00 AM CDT CBC Routine 12/03/2018 Intermittent pa lpitations 2:34 PM CDT FREE T4 Routine 12/03/2018 Intermittent pa lpitations 2:34 PM CDT LIVER PROFILE Routine 12/03/2018 Intermittent pa lpitations 2:34 PM CDT THYROID STIMULATING Routine 12/03/2018 Intermitte nt palpitations HORMONE (TSH) 2:34 PM CDT CBC/DIFF Routine 12/03/2018 Intermittent pa lpitations 2:34 PM CDT BASIC METABOLIC PANEL Routine 12/03/2018 Intermit tent palpitations 2:34 PM CDT HEMOGLOBIN A1C Routine 12/03/2018 Intermittent pa lpitations 2:34 PM CDT 12 LEAD EKG Routine 12/03/2018 Intermittent pa lpitations 12:43 PM CDT XRAY UPPER GI W AIR Routine 11/21/2018 Esophageal dysphagia CONTRAST 11:10 AM CDT MAMMOGRAM BILAT SCREEN Routine 10/25/2018 Breast cancer screening DIGITAL 1:22 PM CDT [facility] Routine 09/26/2018 1:30 PM CDT XRAY SHOULDER 3 VIEWS - Routine 09/26/2018 Acute pain of left ROUTINE 12:27 PM CDT shoulder after 09/15/2018 Results * XRAY CHEST 2 VIEWS (06/16/2019 2:19 PM MECHANICAL PLANNER) Specimen Impressions Performed At IMPRESSION: SMS No acute thoracic abnormality. No signi ficant change compared to the previous chest x-ray 06/05/2018. If the report is "FINALIZED" it indicat es that the attending/staff radiologist has reviewed the images and agrees with the resident's interpretation. Dictated By: Hugh Lagunas MD, 020 2:29 PM I have reviewed the study and agree wit h the findings in this report. Signed By: Luz Maria Tamayo MD, 06/16/2019 3:33 PM Narrative Performed At EXAMINATION: XRAY CHEST 2 VIEWS, Frontal and latera l SMS INDICATION: cough x 4 weeks, persisting . has h/o asthma COMPARISON: Chest x-ray 07/03/2018 FINDINGS: TUBES/LINES: None LUNGS AND PLEURA: No consolidations o r edema. No effusions or pneumothorax. HEART/MEDIASTINUM: Normal cardiomedia stinal silhouette. MUSCULOSKELETAL: Levoscoliosis of the lower thoracic spine. UPPER ABDOMEN: No acute findings. SOFT TISSUES: No acute findings. Procedure Note Luis Alberto Rad/Mammog In - 06/16/2019 3:38 PM MECHANICAL PLANNER EXAMINATION: XRAY CHEST 2 VIEWS, Frontal and lateral INDICATION: cough x 4 weeks, persisting. has h/o asthma COMPARISON: Chest x-ray 07/03/2018 FINDINGS: TUBES/LINES: None LUNGS AND PLEURA: No consolidations or edema. No effusions or pneumothorax. HEART/MEDIASTINUM: Normal cardiomediastinal silhouette. MUSCULOSKELETAL: Levoscoliosis of the lower thoracic spine. UPPER ABDOMEN: No acute findings. SOFT TISSUES: No acute findings. IMPRESSION IMPRESSION: No acute thoracic abnormality. No significant change compared to the previous chest x-ray 06/05/2018. If the report is "FINALIZED" it indicates that the attending/staff radiologist has reviewed the images and agrees with the resident's interpretation. Dictated By: Hugh Lagunas MD, 06/16/2019 2:29 PM I have reviewed the study and agree with the findings in this report. Signed By: Luz Maria Tamayo MD, 06/16/2019 3:33 PM Performing Organization Address [facility] Ph one Number SMS * XRAY FOOT 3 VIEWS MIN (03/04/2019 11:33 AM MECHANICAL PLANNER) Specimen Impressions Performed At IMPRESSION: SMS Scattered degenerative change. No osseo us erosion. Signed By: Jake Kern MD, 03/04/2019 1: 40 PM Narrative Performed At Exam: Radiographs of the right foot SMS History: Pain. Plantar fasciitis Comparison: None. DISCUSSION: No fracture or disl ocation. Scattered degenerative change. No osseous erosion. No abnormal soft tissue calcification or soft tissue defect. Procedure Note Chucho Sahu/Mammog In - 03/04/2019 1:45 PM MECHANICAL PLANNER Exam: Radiographs of the right foot History: Pain. Plantar fasciitis Comparison: None. DISCUSSION: No fracture or dislocation. Scattered degenerative change. No osseous erosion. No abnormal soft tissue calcification or soft tissue defect. IMPRESSION IMPRESSION: Scattered degenerative change. No osseous erosion. Signed By: Jake Kern MD, 03/04/2019 1:40 PM Performing Organization Address [facility] Ph one Number SMS * Pathology - Tissue Exam (01/22/2019 1:59 PM CDT) Case Report Surgical Pathology [facility] Case: [id number] Authorizing Provider: Belle Duong MD Collected: 01/22/2019 01:59 PM Ordering Location: [facility] BT Received: 01/22/2019 02:35 PM Pathologist: Rosalind Meier MD Specimens: A) - Stomach, antrum, gastric antrum bx B) - Stomach, body, gastric body bx FINAL DIAGNOSIS A. STOMACH, ANTRUM, BIOPSY: [facility] Electronically - ANTRAL MUCOSA WITH CHRONIC LABORATORY signed b y Hardeep, ACTIVE HELICOBACTER PYLORI Rosalind Goodwin MD on ASSOCIATED GASTRITIS 01/24/2019 at 11:49 B. STOMACH, BODY, BIOPSY: AM - BODY MUCOSA WITH CHRONIC ACTIVE HELICOBACTER PYLORI ASSOCIATED GASTRITIS Gross Specimen Material: A. Gastric [facility] Description antrum biopsy, B. Gastric body LABORA TORY biopsy The case is received in two parts labeled with the patient's name "BINH STEPHENS", medical record number and given accession number [id number], and it is accompanied by a requisition form labeled with the same name and accession number. Part A. Received in formalin labeled "GASTRIC ANTRUM TISSUE, GASTRIC ANTRUM 1" are five davila-pink tissues ranging from 0.2 to 0.4 cm in greatest dimension. The specimen is submitted in toto in cassette A1. Part B. Received in formalin labeled "GASTRIC BODY TISSUE, GASTRIC BODY TISSUE 2" are two davila-pink tissues measuring 0.2 and 0.4 cm in greatest dimension. The specimen is submitted in toto in cassette B1. /[id number] Director Of Nursing Microscopic A-B. Performed. [facility] Description I have personally reviewed LABORATORY the relevant preparations for the specimen(s), reviewed and agreed with the resident/fellow's interpretation. Specimen Tissue - Stomach, antrum Tissue specimen (specimen) - Stomach, body Performing Organization Address City/State/[facility] Ph one Number [facility] [address] [place] [address] * Cortisol, Total (12/25/2018 10:19 AM CDT) Cortisol, Total 10.6 See Comment. ug/dL [facility] Comment: LABORATORY (AM) Reference Range: 6.7-22.6 mcg/dL (PM) Reference Range: <10 mcg/dL Specimen Blood Performing Organization Address [facility] Ph one Number [facility] [address], [place] [id number] * Adrenocorticotropic Hormone (ACTH) (12/25/2018 9:16 AM CDT) Pathologist [facility] ACTH, Plasma 13.0Comment: ACTH reference 7.2 - 63.3 pg/mL BT [facility] interval for samples collected between 7 and 10 AM. Specimen Blood Narrative Performed At Performed at: 01 - [facility] BT [facility] [address] [place] [address] 3145 Imcu Specialist: Jayesh Plasencia MD, Phone: [phone] Performing Organization Address [facility]/Count Includes [facility] one Number [facility] [address] [place] [address] * 24 HOUR HOLTER MONITOR (12/24/2018 9:17 AM CDT) Pathologist [facility] 24 HOUR HOLTER SMS MONITOR [facility] Test Date: 2018-12-24 Pat Name: BINH STEPHENS Department: Room: Gender: F Therapist'S Assistant: MAYURI STEELE : 1970 Requested By: ILEANA CHEEMA Order Number: [id number] Stephanie MD: April Pozo M.D. Interpretive Statements PREDOMINANT RHYTHM IS SINUS HR RANGE: 47-126 BPM LONGEST PAUSE: 1.4 SEC OCCASIONAL PACS AND SHORT RUNS OF ATRIAL TACHYCARDIA RARE PVCS NO HEART BLOCK Electronically Signed On 12-26-2018 6:12:19 CDT by April Pozo M.D. Specimen Performing Organization Address [facility]/Count Includes [facility] one Number SMS * TRANSTHORACIC ECHO (TTE) (12/24/2018 8:42 AM CDT) [facility] TRANSTHORACIC Transthoracic SMS ECHO (TTE) Echo Report BINH STEPHENS Age: 48 Gender: F : 1970 Exam Date: 12/24/2018 08:42 Exam Location: [facility] Echo Ordering Phys: ILEANA CHEEMA Referring Phys: ILEANA CHEEMA Reading Phys: Ruth Ann Vivar MD Fellow Phys: Fellow Phys: Litigator: Mayuri Pearson Reason For Exam: Indications: abnormal EKG, tachycardia, intermittent palpitations, Abnormal electrocardiogram ICD-9 Codes: R94.31 Exam Type: TRANSTHORACIC ECHO (TTE) Procedure CPT: 79747 Addtional CPT: Ht (in): 67 BSA: 1.71 HR: 80 Rhythm: Sinus rhythm Wt (lb): 137 BP: 110 / 66 Technical Quality: History: MEASUREMENTS Normal ranges based on 95% confidence intervals for adults, some normal patients may fall outside of this range especially when indexing for BSA 2D ECHO LV Diastolic Diameter PLAX 4.8 cm 4.2-5.8 (M) / 3.8-5.2 (F) LV Systolic Diameter PLAX 3.1 cm 2.5-4.0 (M) / 2.2-3.5 (F) LV Fractional Shortening PLAX 36.2 % IVS Diastolic Thickness 0.62 cm 0.6-1.0 (M) / 0.6-0.9 (F) LVPW Diastolic Thickness 0.56 cm 0.6-1.0 (M) / 0.6-0.9 (F) LV Relative Wall Thickness 0.24 <= 0.42 LVOT Diameter 1.9 cm Aortic Root Diameter 3.1 cm LA Systolic Diameter LX 3 cm LA Ao Ratio 0.97 LV Diastolic Volume MOD 4C 112 cm LV Systolic Volume MOD 4C 50.1 cm LV Ejection Fraction MOD 4C 55.2 % LA Volume 26.9 cm LA Volume Index 15.7 cm/m 16 - 34 cm/m LV Mass by linear method 88.1 g LV Mass by linear method Index 51.4 g/m DOPPLER LVOT Peak Velocity 85.8 cm/s LVOT Peak Gradient 2.9 mmHg LVOT Mean Velocity 61.4 cm/s LVOT Mean Gradient 2 mmHg LVOT Velocity Time Integral 18.2 cm LVOT Stroke Volume 51.6 cm Mitral E Point Velocity 80.4 cm/s Mitral A Point Velocity 35 cm/s Mitral E to A Ratio 2.3 TR Peak Velocity 226 cm/s TR Peak Gradient 20.4 mmHg LV E' Lateral Velocity 12.3 cm/s Mitral E to LV E' Lateral Ratio 6.5 FINDINGS Left Ventricle Normal left ventricular size. Normal left ventricular wall thickness. Normal left ventricular systolic function. Left ventricular ejection fraction is 55- 59%. There are no regional wall motion abnormalities noted. Normal LV relaxation, normal LV filling pressures. Right Ventricle Normal right ventricular size and systolic function. Right Atrium Normal right atrial size. Left Atrium Normal left atrial size. IAS Mitral Valve Mitral valve structurally/functionally normal. Aortic Valve The aortic valve is trileaflet and opens well. Tricuspid Valve Normally structured tricuspid valve. Mild tricuspid regurgitation (normal variant). Right ventricular systolic pressure estimated to be within the normal range. Pulmonic Valve Grossly normal pulmonic valve. Pericardium No pericardial effusion. Aorta Normal size aortic root adjusted for BSA. IVC RA pressure is 0-5 mmHg. CONCLUSIONS Normal left ventricular size. Normal left ventricular wall thickness. Normal left ventricular systolic function. Left ventricular ejection fraction is 55- 59%. There are no regional wall motion abnormalities noted. Normal LV relaxation, normal LV filling pressures. Normal right ventricular size and systolic function. Right ventricular systolic pressure estimated to be within the normal range. No prior study for comparison. Ruth Ann Vivar MD (Electronically Signed) Final Date: 24 December 2018 11:03 2D ECHO LV Diastolic Diameter PLAX 4.8 cm 4.2-5.8 (M) / 3.8-5.2 (F) LV Systolic Diameter PLAX 3.1 cm 2.5-4.0 (M) / 2.2-3.5 (F) LV Fractional Shortening PLAX 36.2 % IVS Diastolic Thickness 0.62 cm 0.6-1.0 (M) / 0.6-0.9 (F) LVPW Diastolic Thickness 0.56 cm 0.6-1.0 (M) / 0.6-0.9 (F) LV Relative Wall Thickness 0.24 <= 0.42 LVOT Diameter 1.9 cm Aortic Root Diameter 3.1 cm LA Systolic Diameter LX 3 cm LA Ao Ratio 0.97 LV Diastolic Volume MOD 4C 112 cm LV Systolic Volume MOD 4C 50.1 cm LV Ejection Fraction MOD 4C 55.2 % LA Volume 26.9 cm LA Volume Index 15.7 cm/m 16 - 34 cm/m LV Mass by linear method 88.1 g LV Mass by linear method Index 51.4 g/m DOPPLER LVOT Peak Velocity 85.8 cm/s LVOT Peak Gradient 2.9 mmHg LVOT Mean Velocity 61.4 cm/s LVOT Mean Gradient 2 mmHg LVOT Velocity Time Integral 18.2 cm LVOT Stroke Volume 51.6 cm Mitral E Point Velocity 80.4 cm/s Mitral A Point Velocity 35 cm/s Mitral E to A Ratio 2.3 TR Peak Velocity 226 cm/s TR Peak Gradient 20.4 mmHg LV E' Lateral Velocity 12.3 cm/s Mitral E to LV E' Lateral Ratio 6.5 Specimen Performing Organization Address [facility]/Count Includes [facility] one Number SMS * H. Pylori Stool Ag (12/19/2018 4:24 PM CDT) H. pylori Stool Negative BT [facility] Ag, EIA Specimen Stool - Feces Narrative Performed At Performed at: 01 - [facility] [place] BT [facility] [address] [place] [address]366 Imcu Specialist: Laureano Mckoy MD, Phone : [phone] Performing Organization Address [facility]/Count Includes [facility] one Number BT [facility] [address] [place] [address] * XRAY WRIST 3 VIEWS MIN (12/19/2018 3:55 PM CDT) Specimen Impressions Performed At IMPRESSION: SMS No acute radiographic abnormality. Mild scattered degenerative changes. Dictated By: Robson Gordillo MD, 8:15 AM I have reviewed the study and agree wit h the findings in this report. Signed By: Jake Kern MD, 12/20/2018 10 :26 AM Narrative Performed At EXAM: Radiographs of the right wrist SMS TECHNIQUE: 3 image(s) HISTORY: right wrist pain, prior h/o fr acture, tenderness over the distal radial head COMPARISON: None DISCUSSION: Bone: No acute displaced fracture. No aggressive osseous lesion. Joints: Mild scattered degenerative changes. No dislocation. Soft tissues: Appear unremarkable. Procedure Note Interface, Rad/Mammog In - 12/20/2018 10:31 AM CDT EXAM: Radiographs of the right wrist TECHNIQUE: 3 image(s) HISTORY: right wrist pain, prior h/o fracture, tenderness over the distal radial head COMPARISON: None DISCUSSION: Bone: No acute displaced fracture. No aggressive osseous lesion. Joints: Mild scattered degenerative changes. No dislocation. Soft tissues: Appear unremarkable. IMPRESSION IMPRESSION: No acute radiographic abnormality. Mild scattered degenerative changes. Dictated By: Robson Gordillo MD, 12/20/2018 8:15 AM I have reviewed the study and agree with the findings in this report. Signed By: Jake Kern MD, 12/20/2018 10:26 AM Performing Organization Address City/State/Zipcode Ph one Number SMS * EGD (12/09/2018 12:00 AM CDT) TEXT Patient Name BINH STEPHENS Date of 1970 Record Number [id number] Date/Time of Procedure 12/09/2018, 00:00:00 Endoscopist Belle Duong M.D. Assisting MD./Fellow INDICATIONS FOR EXAMINATION: Dysphagia. PROCEDURE PERFORMED: EGD - EGD with biopsy single/multiple INSTRUMENTS: [id number] LIMITATIONS: TOLERANCE: Good VISUALIZATION: Good MEDICATIONS: MAC Anesthesia ASA CLASSIFICATION: II ANALGESIA: Anesthesia PROCEDURE TECHNIQUE: Prior to the procedure, a History and Physical was performed, and patient medications and allergies were reviewed. The risks and benefits of the procedure and the sedation options and risks were discussed with the patient. Consent was obtained. Pulse, blood oxygen saturation, and blood pressure were monitored throughout the procedure. After adequate sedation, the endoscope was introduced through the mouth and under direct visualization advanced to the third part of duodenum. Careful examination of the esophagus, stomach and duodenum was performed. FINDINGS: The upper, middle, and lower esophagus appeared normal. The GE junction was normal. There was edema, erythema and some erosions in the antrum with mild deformity. No obvious masses or polyps were seen. This area was biopsied using cold biopsy forceps. Otherwise the gastric cardia, fundus, body, were normal. Biopsies were taken in a separate jar from the body The pylorus, duodenal bulb, and descending duodenum through the second portion of the duodenum appeared normal. SPECIMEN COLLECTED: Yes 1 ENDOSCOPIC DIAGNOSIS: 1. ANtral erythema, edema s/p biopsies 2. Otherwise normal upper endosocpy RECOMMENDATIONS: 1. Follow up pathology 2. PPI daily 3. Follow up with GI clinic COMPLICATIONS: None. None ESTIMATED BLOOD LOSS: None BLOOD PRODUCTS ADMINISTERED: None GRAFT/IMPLANT: None TOTAL PROCEDURE TIME: TOTAL SEDATION TIME: COMMENTS: CPT CODE: 88990 Esophagogastroduodenoscopy, flexible, transoral; with biopsy, single or multiple ICD CODE: R13.1 Dysphagia I was present during the entire viewing portion of the procedure. I personally reviewed the images and report prepared by the resident or fellow and agree with the findings. After the procedure was completed, the patient was taken to the recovery in good condition. This Procedure was electronically signed of on : 01/22/2019 2:07:45 PM By Belle Duong Specimen Performing Organization Address City/State/Zipcode Ph one Number SMS * CBC/Diff (12/03/2018 2:34 PM CDT) WBC 11.2 (H) 4.5 - 11.0 K/uL [facility] RBC 4.97 4.20 - 5.40 M/uL [facility] Hemoglobin 14.9 12.0 - 16.0 g/dL [facility] Hematocrit 47.2 (H) 37.0 - 47.0 % [facility] MCV 95.0 (H) 82.0 - 92.0 fL [facility] MCH 30.0 27.0 - 32.0 pg [facility] MCHC 31.6 (L) 32.0 - 36.0 g/dL [facility] RDW 46.2 36.4 - 46.3 fL [facility] Platelet 417 (H) 150 - 400 K/uL [facility] Mean Platelet 10.9 9.4 - 12.4 fL [facility] Volume [facility]OR[facility] Percent NRBC 0.0 % [facility] Neutrophil 79.7 (H) 34.0 - 70.0 % [facility] Lymphs 12.2 (L) 20.0 - 50.0 % [facility] Monocytes 6.0 5.0 - 12.0 % [facility] Eos 1.4 0.7 - 5.0 % [facility] Basos 0.4 0.1 - 1.2 % [facility] Immature 0.3 0.0 - 0.5 % [facility] Granulocytes LABORATORY Neutrophils 8.90 (H) 1.56 - 6.13 K/uL [facility] (Absolute) LABOR[facility]ORY Lymphs 1.36 1.18 - 3.74 K/uL [facility] (Absolute) LAB[facility] Monocytes(Absol 0.67 (H) 0.24 - 0.36 K/uL [facility] ritika) LABORATORY Eos (Absolute) 0.16 0.04 - 0.36 K/uL [facility] Baso (Absolute) 0.05 0.01 - 0.08 K/uL [facility] Immature Grans 0.03 0.00 - 0.03 K/uL [facility] (Abs) [facility] Absolute NRBC 0.00 K/uL [facility] Specimen Blood Performing Organization Address [facility]/Count Includes [facility] one Number [facility] [address] [place] [address] [phone] * Hemoglobin A1C (12/03/2018 2:34 PM CDT) Pathologist [facility] Hemoglobin A1c 5.0 4.3 - 6.1 % [facility] Estimated 97 70 - 110 mg/dL [facility] Average Glucose LABORATORY Specimen Blood Performing Organization Address [facility]/Count Includes [facility] one Number [facility] [address] [place] [address] [phone] * TSH [Thyroid Stimulating Hormone] (12/03/2018 2:34 PM CDT) [facility] TSH 1.09 0.57 - 3.74 uIU/mL [facility] Comment: LABORATORY If , please see the following reference ranges (not verified by lab): 1st Trimester: 0.05 -3.70 uIU/mL 2nd Trimester: 0.31 -4.35 uIU/mL 3rd Trimester: 0.41 - 5.18 uIU/mL Specimen Blood Performing Organization Address [facility]/Count Includes [facility] one Number [facility] [address] [place] [address] [phone] * Free T4 (12/03/2018 2:34 PM CDT) [facility] Free T4 0.73 0.61 - 1.18 ng/dl [facility] Specimen Blood Performing Organization Address [facility]/Count Includes [facility] one Number [facility] [address] [place] [address] * Liver Profile (12/03/2018 2:34 PM CDT) [facility] Total Protein 6.8 6.0 - 8.3 g/dL [facility] Bilirubin, 0.6 0.2 - 1.2 mg/dL [facility] Total LABORATORY Alkaline 80 34 - 104 U/L [facility] Phosphatase LABORATORY AST 19 13 - 39 U/L [facility] Direct 0.1 0.0 - 0.2 mg/dL [facility] Bilirubin LABOR[facility]ORY ALT 19 7 - 52 U/L [facility] Albumin 4.4 3.7 - 5.3 g/dL [facility] Specimen Blood Performing Organization Address [facility]/Count Includes [facility] one Number [facility] [address] [place] [address] * Basic Metabolic Panel (12/03/2018 2:34 PM CDT) Sodium 142 136 - 145 mmol/L [facility] Potassium 4.0 3.5 - 5.1 mmol/L [facility] Chloride 105 98 - 107 mmol/L [facility] CO2 27 21 - 31 mmol/L [facility] Urea Nitrogen 13.0 7.0 - 25.0 mg/dL [facility] Creatinine 1.0 0.6 - 1.2 mg/dL [facility] Glucose 64 (L) 70 - 110 mg/dL [facility] Calcium 9.8 8.6 - 10.3 mg/dL [facility] GFR, Estimated 59 (L) >=90 mL/min/1.73 m2 [facility] Anion Gap 10 5 - 16 mmol/L [facility] Specimen Blood Performing Organization Address [facility] one Number [facility] [address] [place] [address] * 12 LEAD EKG (12/03/2018 12:43 PM CDT) 12 LEAD EKG FOR [facility] Test Date: 2018-12-03 Pat Name: BINH STEPHENS Department: Room: Gender: F Therapist'S Assistant: [id number] : 1970 Requested By: ILEANA CHEEMA Order Number: [id number] Reading MD: Daina Powell MD Measurements Intervals [place] Rate: 94 P: 63 IN: 140 QRS: 77 QRSD: 90 T: 68 QT: 335 QTc: 420 Interpretive Statements SINUS RHYTHM POSSIBLE LEFT ATRIAL ENLARGEMENT Electronically Signed On 12-03-2018 14:59:10 CDT by Daina Powell MD Specimen Performing Organization Address [facility] one Number [facility] * XRAY UPPER GI W AIR CONTRAST (11/21/2018 11:10 AM CDT) Specimen Impressions Performed At IMPRESSION: [facility] 1. Mobile polypoid antral mass , sugg estive of benign lesion. Recommend endoscopy for further evaluation. 2. Thickened gastric folds consistent with chronic gastritis. Recommend checking for H. pylori. 3. Small sliding hiatal hernia. 4. Normal esophagus with no obstructi on or narrowing. This [facility] radiology report is a prelimi nary resident dictation until finalized by an attending. Changes to this preliminary report may occur in an additional preliminary or finaliz ed version. Dictated By: Gely Parker MD, 019 4:10 PM I have reviewed the study and agree wit h the findings in this report. Signed By: Ashely Wolf MD, 11/22/2018 9:45 AM Narrative Performed At EXAM: FLUOROSCOPY UPPER GI CONTRAST SMS DATE: 11/21/2018 11:11 AM INDICATION: Feeling of liquids and jenny ds getting stuck in esophagus. Esophageal dysphagia ADDITIONAL INFORMATION: Stabbing pain i n throat, weight loss, reported history of reflux COMPARISON: None. TECHNIQUE: Barium upper GI was performe d using double contrast technique orally. FLUOROSCOPY TIME: ft: 345 secs, tdap: 4 7.51 Gycm^2 DISCUSSION: Preliminary radiograph: Normal abdomen and lateral neck. Swallowing: Normal. Esophagus: Motility: Adequate opening of the upp er and lower esophageal sphinctrers. Anatomy: Normal caliber with no esophag eal narrowing. No filling defects, mucosal irregularities, obstru ctions or extrinsic compressions identified. Hiatal hernia: Small sliding hiatal her jordan Gastroesophageal reflux: None. Stomach: Thickening of gastric folds. Polypoid dynamic structure along lesser curvature in gastric antrum, all owing peristalsis through and prolapsing into duodenum with peristals is. Duodenum: Normal. Procedure Note Interface, Rad/Mammog In - 11/22/2018 9:50 AM CDT EXAM: FLUOROSCOPY UPPER GI CONTRAST DATE: 11/21/2018 11:11 AM INDICATION: Feeling of liquids and solids getting stuck in esophagus. Esophageal dysphagia ADDITIONAL INFORMATION: Stabbing pain in throat, weight loss, reported history of reflux COMPARISON: None. TECHNIQUE: Barium upper GI was performed using double contrast technique orally. FLUOROSCOPY TIME: ft: 345 secs, tdap: 47.51 Gycm^2 DISCUSSION: Preliminary radiograph: Normal abdomen and lateral neck. Swallowing: Normal. Esophagus: Motility: Adequate opening of the upper and lower esophageal sphinctrers. Anatomy: Normal caliber with no esophageal narrowing. No filling defects, mucosal irregularities, obstructions or extrinsic compressions identified. Hiatal hernia: Small sliding hiatal hernia Gastroesophageal reflux: None. Stomach: Thickening of gastric folds. Polypoid dynamic structure along lesser curvature in gastric antrum, allowing peristalsis through and prolapsing into duodenum with peristalsis. Duodenum: Normal. IMPRESSION IMPRESSION: 1. Mobile polypoid antral mass , sugges tive of benign lesion. Recommend endoscopy for further evaluation. 2. Thickened gastric folds consistent w ith chronic gastritis. Recommend checking for H. pylori. 3. Small sliding hiatal hernia. 4. Normal esophagus with no obstruction or narrowing. This [facility] radiology report is a preliminary resident dictation until finalized by an attending. Changes to this preliminary report may occur in an additional preliminary or finalized version. Dictated By: Gely Parker MD, 11/21/2018 4:10 PM I have reviewed the study and agree with the findings in this report. Signed By: Ashely Wolf MD, 11/22/2018 9:45 AM Performing Organization Address City/State/Zipcode Ph one Number SMS * MAMMOGRAM BILAT SCREEN DIGITAL (10/25/2018 1:22 PM CDT) Specimen Impressions Performed At IMPRESSION: NEGATIVE SMS There is no mammographic evidence of ma lignancy. A 1 year screening mammogram is recommended. This document has been electronically s igned. Jung Rod M.D., mc/penrad:10/25/2018 13:23:59 Refinery Operator Alkylation: Ms. Yesica ARREOLA(R)(M), [facility] letter sent: Mammography Normal Mammogram BI-RADS: 1 Negative G0202 z12.31 Narrative Performed At #[id number] - MAMMOGRAM BILAT SCREEN DIGITAL SMS BILATERAL DIGITAL SCREENING MAMMOGRAM W ITH CAD: 10/25/2018 CLINICAL: Screening for malignancy. Comparison is made to exam dated: 11/05 [facility]. There are scattered fibroglandular [place] ents in both breasts that could obscure a lesion on mammography. Current study was also evaluated with a Computer Aided Detection (CAD) system. No significant masses, calcifications, or other findings are seen in either breast. Procedure Note Interface, Rad/Mammog In - 10/25/2018 2:22 PM CDT #[id number] - MAMMOGRAM BILAT SCREEN DIGITAL BILATERAL DIGITAL SCREENING MAMMOGRAM WITH CAD: 10/25/2018 CLINICAL: Screening for malignancy. Comparison is made to exam dated: 11/05/2017 [facility]. There are scattered fibroglandular elements in both breasts that could obscure a lesion on mammography. Current study was also evaluated with a Computer Aided Detection (CAD) system. No significant masses, calcifications, or other findings are seen in either breast. IMPRESSION IMPRESSION: NEGATIVE There is no mammographic evidence of malignancy. A 1 year screening mammogram is recommended. This document has been electronically signed. Jung Rod M.D., mc/ward:10/25/2018 13:23:59 Refinery Operator [employer]: Ms. 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 Clinical Impression: NF. Specimen Material: Excision, left upper abdomen. Gross Description This case consists of one part: Part A: Received in formalin labeled with the patient's name and medical record number and "LEFT UPPER ABDOMEN ON THE REQUISITION". It consists of a 1.2 x 0.5 cm unoriented, davila, elliptical skin excision which is excised to a depth of 0.5 cm. The epidermis displays a 0.4 x 0.3 cm ill-defined, davila-white lesion which abuts the peripheral skin margin. The resection margins are inked black and the specimen is serially sectioned to reveal the lesion appears confined to the epidermis and the subcutaneous soft tissue is comprised of davila-white, fibrotic soft tissue. The specimen is entirely submitted as follows: A1: tips A2: remainder of skin with lesion Jeremy Pittman/[id number] Director Of Nursing Microscopic Description A microscopic examination has been performed and the findings are incorporated in the diagnosis above. The positive and negative controls for all histochemical and immunohistochemical stains, if performed for this case, have been reviewed and, unless otherwise noted, have been found to be appropriate. Notably, sections show a benign proliferation of dermal nerves with notable eosinophils. Electronically Signed Out Hina Malone M.D./[id number] Staff Pathologist Specimen Performing Organization Address City/[facility] Ph one Number [facility] * XRAY SHOULDER 3 VIEWS - ROUTINE (09/26/2018 12:27 PM CDT) Specimen Impressions Performed At IMPRESSION: SMS No acute or degenerative changes identi fied. Signed By: Francois Fam MD, 9 1:14 PM Narrative Performed At EXAM: XR LEFT SHOULDER 3 VIEWS SMS DATE: 09/26/2018 12:28 PM INDICATION: left shoulder pain Acute pain of left shoulder COMPARISON: None available TECHNIQUE: Left shoulder - 3 views FINDINGS: No fracture, periosteal reaction, or er osions identified. Joint alignment is normal. Soft tissues are unremarkable. Procedure Note Interface, Rad/Mammog In - 09/26/2018 1:19 PM CDT EXAM: XR LEFT SHOULDER 3 VIEWS DATE: 09/26/2018 12:28 PM INDICATION: left shoulder pain Acute pain of left shoulder COMPARISON: None available TECHNIQUE: Left shoulder - 3 views FINDINGS: No fracture, periosteal reaction, or erosions identified. Joint alignment is normal. Soft tissues are unremarkable. IMPRESSION IMPRESSION: No acute or degenerative changes identified. Signed By: Francois Fam MD, 09/26/2018 1:14 PM Performing Organization Address [facility] Ph one Number SMS after 09/15/2018 Insurance Type Payer Benefit Subscriber ID Effective Phone Address Plan / Dates Group [facility] xxxxxxxxx 2019- [phone] COMMUNITY Present [id number] PLAN [facility] [place] [address] [facility] [employer] FINANCIAL xxxxxxx 2018- [phone] [id number] [facility] [address] [place] [address] [place] [address] Advance Directives Date Inactivated Comments Code Status Date Activated 06/28/2018 6:28 PM Full Code 06/27/2018 6:07 PM
--- OUTSIDE RECORDS SUMMARY | 2019-09-16 05:43 | XMS REPORT ---
Author Author [facility] t Organization [facility] Address [address] [facility]. [address] [place] [address] Phone Unavailable Care Team Providers Care Class A Truck Driver Name Role Phone NO, PCP PCP Unavailable CARYN GARCIA Attphys Unavailable Tiffany DPM, M Doug Attphys Terrence HOG ROOM SUPERVISOR, Yevgeniy Oliva Attphys Alva RAMIREZ, Kristine Painting Attphys Unavailmarcy Cheema MD, Ileana Attphys Pk ADAMS, Gal Attphys Fercho ADAMS, Steve Olivia Attphys Giana RAMIREZ, Roxana Attphys Unavailable Natalie Bill Attphys Unavailable Jackie RAMIREZ, Hesham Attphys Unavailable Beltran RAMIREZ, Ventura Oconnell Attphys Unavailable Arabella RAMIREZ, Roberto Carlos Rojas Attphys Unavailable Agustin ADAMS, Kerline Attphys Faisal ADAMS, Lyndsey Zuluaga Attphys Abdiel HOG ROOM SUPERVISOR, H Amy Attphys Rhoda ADAMS, Belle Attphys Unavailable Eulalia Physician, O Natalie Attphys [phone] Ashley Majano, Yevgeniy Ribera Attphys Crystla ADAMS, Izabela Attphys Chloe HOG ROOM SUPERVISOR, Leighann Attphys Unavailable Henok ADAMS, Luis Carlos Attphys Davon ADAMS, T Frantz Attphys Jose Pearson Natalie Attphys Unavailable Ajith ADAMS, Yevgeniy Mercado Attphys Meliton RN, Junior Attphys Unavailable Davion ADAMS, Subhash Moody Attphys Jass RAMIREZ, M Linda Attphys Unavailable Daria ADAMS, Dewayne Sandoval Attphys Kamla ADAMS, Caroline Attphys Payers Payer Name Policy Type Policy Number Effective Date Expiration Date [facility] COMMUN ITY PLAN [id number].OJacqueline MORENO [id number] [place] [address] xxxxxxxxx 2019 00:00:00 Osvaldo Najera eaFormerly [facility] PLANFINANCIAL ASSISTANCE PROGRAMxxx [id number] [place] [address] xxxxxxx 2018 00:00:00 11-24 23:59:59 Osvaldo Health Problems Condition Name Condition Details Condition Category Status Onset Date Resolution Date Last Treatment Date Treating Clinician Comments Source Primary osteoarthritis of left knee Primary osteoarthritis of le ft knee Disease Active 2018-11-07 00:00:00 [facility] Abnormal uterine bleeding (AUB) Abnormal uterine bleeding (AUB) Dis ease Active 2018-06-06 00:00:00 Overview: Ad ded automatically from request for surgery [id number] [facility] Fibroids, intramural Fibroids, intramural Disease Active 00:00:00 [facility] Pelvic pain Pelvic pain Disease Active 2018-05-31 00:00:00 [facility] Impaired gait and mobility Impaired gait and mobility Disease Active 2018-02-19 00:00:00 [facility] Chronic periodontitis, generalized, moderate Chronic p eriodontitis, generalized, moderate Disease Active 2018-01-30 00:00:00 [facility] Lateral meniscus tear Lateral meniscus tear Disease Active 201 12-06-24 00:00:00 Overview: Added automatically fr om request for surgery [id number] [facility] Complex tear of lateral meniscus of left knee as curre nt injury Complex tear of lateral meniscus of left knee as current injury Disease Active 2018-01-07 00:00:00 Overview: Added automaticall y from request for surgery [id number] [facility] Abnormal uterine bleeding Abnormal uterine bleeding Disease Ac tive 2018-01-01 00:00:00 [facility] Chronic periodontitis Chronic periodontitis Disease Active 201 12-06-15 00:00:00 [facility] Iron deficiency anemia Iron deficiency anemia Disease Active 2017-11-13 00:00:00 [facility] Arthralgia of left knee Arthralgia of left knee Disease Active 2017-09-25 00:00:00 [facility] Allergies, Adverse Reactions, Alerts Allergy Name Allergy Type Status Severity Reaction(s) Onset Date Inacti ve Date Treating Clinician Comments Source No Known Allergies DA Active U 2019-02-10 00:00:00 [facility] Tomato Propensity to adverse reactions to drug Active Itching 2018-03-06 00:00:00 [facility] Tramadol Propensity to adverse reactions to drug Active Itching, Nausea and Vomiting 2017-11-16 00:00:00 [facility] No Known Allergies DA Active U 2017-09-11 00:00:00 [facility] Family History Family Member Diagnosis Comments Start Date Stop Date Source Natural father Congenital heart disease [facility] Natural father Lung cancer [facility] Natural mother Arthritis [facility] Natural mother COPD [facility] Natural mother Hypertension [facility] Natural mother Osteoporosis [facility] Natural mother Pulmonary [facility] Social History Social Habit Start Date Stop Date Quantity Comments Source Sex Assigned At [facility] Exposure to SARS-CoV-2 (event) Not sure [facility] Alcohol intake 2019-09-09 00:00:00 2019-09-09 00:00:00 [facility] History SDOH Food Worry 2018-09-26 00:00:00 2018-09-26 00:00:00 1 [facility] History SDOH Food Scarcity 2018-09-26 00:00:00 2018-09-26 00:00:00 1 [facility] Tobacco Comment 2017-10-23 00:00:00 2017-10-23 00:00:00 quit a m onth ago in August 2017 [facility] History of tobacco use 2017-09-22 00:00:00 Light tobacco s moker [facility] Smoking Status Start Date Stop Date Source Light tobacco smoker 2019-09-09 00:00:00 [facility] Medications Ordered Medication Name Filled Medication Name Start Date Stop Da te Current Medication? Ordering Clinician Indication Dosage Frequency Signature (SIG) Comments Components Source albuterol 90 mcg/actuation inhaler 2019-09-02 00:00:00 Y es [id number] 2{puff} Inhale 2 Puffs by mouth ever y 4 hours as needed for Wheezing or Shortness of Breath (Cough) Please fill today. [facility] benzonatate (TESSALON PERLES) 100 mg capsule 00:00:00 2019-09-13 04:59:00 No [id number] 100mg Take 1 capsule by mouth 3 times daily as needed for up to 7 days for Cough Please fill today. [facility] ibuprofen (MOTRIN) 600 mg tablet 2019-07-17 00:00:00 Yes [id number] 600mg Take 1 tablet by mouth every 8 hours as needed for Pain. [facility] albuterol 90 mcg/actuation inhaler 2019-07-17 00:00:00 00:00:00 No [id number] 2{puff} Inhale 2 Puffs b y mouth 4 times daily as needed for Wheezing. [facility] albuterol 90 mcg/actuation inhaler 2019-07-11 00:00:00 202 00:00:00 No [id number] 2{puff} Inhale 2 Puffs b y mouth 4 times daily as needed for Wheezing. [facility] albuterol (PROVENTIL) 2.5 mg /3 mL (0.083 %) nebulized solut ion 2.5 mg 2019-07-07 22:23:21 2020-01-04 04:59:00 Yes [id number] 2.5mg [facility] codeine-guaiFENesin (CHERATUSSIN AC) 10-100 mg/5 mL syrup 2019-07-07 00:00:00 Yes [id number] 5mL Take 5 mL by m outh 3 times daily as needed for Cough or Congestion. [facility] gabapentin (NEURONTIN) 300 mg capsule 2019-06-16 00:00:00 Yes [id number] 300mg Take 1 capsule by mouth 3 times daily. [facility] albuterol 90 mcg/actuation inhaler 2019-06-16 00:00:00 202 00:00:00 No [id number] 2{puff} Inhale 2 Puffs b y mouth 4 times daily as needed for Wheezing. [facility] codeine-guaiFENesin (CHERATUSSIN AC) 10-100 mg/5 mL syrup 2019-06-16 00:00:00 2019-07-07 00:00:00 No [id number] 5mL Take 5 mL by mouth 3 times daily as needed for Cough or Congestion. [facility] jeanette azithromycin (ZITHROMAX) 250 mg tablet 2019-05-31 7 00:00:00 2019-06-22 05:59:00 No [id number] Take 2 tablets by mouth on the first day, then take one tablet every day for the next 4 days. [facility] radhames omeprazole (PRILOSEC) 20 mg delayed release capsule 06-06 00:00:00 Yes [id number] 20mg QD Take 1 capsule by mouth daily. [facility] clobetasol propionate (TEMOVATE E) 0.05 % emollient cream 2019-06-03 00:00:00 Yes [id number] Q.5D Apply to affected area 2 times daily. [facility] ibuprofen (MOTRIN) 600 mg tablet 2019-06-03 00:00:00 2019-06 00:00:00 No [id number] 600mg Take 1 tablet by mouth every 8 hours as needed for Pain. [facility] fluticasone propion-salmeterol (ADVAIR DISKUS) 250-50 mcg/do se diskus inhaler 2019-04-02 00:00:00 Yes [id number] 1{puff} Q.5D Inhale 1 Puff by mouth 2 times daily. [facility] albuterol 90 mcg/actuation inhaler 2019-04-02 00:00:00 00:00:00 No [id number] 2{puff} Inhale 2 Puffs b y mouth 4 times daily as needed for Wheezing. [facility] esomeprazole (NEXIUM) 20 mg delayed release capsule 2019-04-02 00:00:00 2019-06-06 00:00:00 No [id number] 20mg QD Take 1 capsule by mouth every morning (before breakfast). [facility] esomeprazole (NEXIUM) 20 mg delayed release capsule 2019-03-19 00:00:00 2019-04-01 00:00:00 No [id number] 20mg QD Take 1 capsule by mouth every morning (before breakfast). [facility] fluconazole (DIFLUCAN) 150 mg tablet 2019-03-19 00:00: 00 2019-03-20 05:59:00 No [id number] 150mg Take 1 tablet by mouth once for 1 dose. [facility] ibuprofen (MOTRIN) 600 mg tablet 2019-03-04 00:00:00 2019-05 00:00:00 No [id number] 600mg Take 1 tablet by mouth every 8 hours as needed for Pain. [facility] levoFLOXacin (LEVAQUIN) 750 mg tablet 2019-03-04 00:00 :00 2019-03-15 05:59:00 No [id number] 750mg QD Take 1 tablet by mouth daily fo r 10 days. [facility] methylPREDNISolone (MEDROL, ANNELISE,) 4 mg dose pack 2019-03-04 00:00:00 2019-03-11 05:59:00 No [id number] Follo w directions from dose pack and/or instructions from . [facility] Neomy Sulf/Colist Sul/Hc/Thonz (Cortisporin-Tc Ear Jossy p) 10 Ml Drops.susp Neomy Sulf/Colist Sul/Hc/Thonz (Cortisporin-Tc Ear Susp) 10 Ml Drops.susp 2019-02-26 00:00:00 Yes Bull Simpson Requirements Analyst 4 Three Times A Da y [facility] triamcinolone acetonide (KENALOG-40) injection 40 mg 2019-01-30 18:30:00 2019-01-30 19:08:00 No [id number] 40mg [facility] lidocaine (PF) (XYLOCAINE) 10 mg/mL (1 %) injection 10 mL 2019-01-30 18:30:00 2019-01-30 19:08:00 No [id number] 10mL [facility] Bismuth Subcit B-Tmofffkgx-FYI (PYLERA) 140-125-125 mg delayed release capsule 2019-01-24 00:00:00 2019-02-17 04:59:00 No [id number] 3{caps ule} Q.25D Take 3 capsules by mouth 4 times daily (after meals and nightly) for 10 days. [facility] omeprazole (PRILOSEC) 20 mg delayed release capsule 2019-01-24 00:00:00 2019-02-17 04:59:00 No [id number] 40mg Q.5D Take 2 capsules by mouth 2 times daily for 10 days. [facility] azithromycin (ZITHROMAX) 250 mg tablet 2018-12-29 2 00:00:00 2019-01-15 04:59:00 No [id number] Take 2 tablets by mouth on the first day, then take one tablet every day for the next 4 days. [facility] radhames povidone-iodine (BETADINE) 10 % topical applicator 1 Applica tion 2018-12-23 14:00:00 2018-12-23 14:14:00 No [id number] 1{application} [facility] diclofenac (VOLTAREN) 1 % gel 2018-12-23 00:00:00 Yes [id number] 2g Apply 2 g to affected area 4 times daily Apply to left knee and left shoulder as needed. [facility] povidone-iodine (BETADINE) 10 % topical applicator 1 Applica tion 2018-11-14 16:00:00 2018-11-14 16:06:00 No [id number] 1{application} [facility] povidone-iodine (BETADINE) 10 % topical applicator 1 Applica tion 2018-11-07 16:00:00 2018-11-07 16:01:00 No 1{application} [facility] triamcinolone acetonide (KENALOG-40) injection 40 mg 2018-10-10 15:15:00 2018-10-10 16:07:00 No [id number] 40mg [facility] lidocaine (PF) (XYLOCAINE) 10 mg/mL (1 %) injection 10 mL 2018-10-10 15:15:00 2018-10-10 16:07:00 No [id number] 10mL [facility] povidone-iodine (BETADINE) 10 % topical applicator 1 Applica tion 2018-10-10 15:15:00 2018-10-10 16:07:00 No [id number] 1{application} [facility] acetaminophen-codeine (TYLENOL/CODEINE #3) 300-30 mg per tab let 2018-09-27 00:00:00 2019-07-07 00:00:00 No [id number] 1{tbl} Take 1 tablet by mouth every 8 hours as needed for Pain. [facility] ibuprofen (MOTRIN) 600 mg tablet 2018-09-27 00:00:00 2019-02 00:00:00 No [id number] 600mg Take 1 tablet by mouth every 8 hours as needed for Pain. [facility] esomeprazole (NEXIUM) 20 mg delayed release capsule 2018-09-27 00:00:00 2019-01-24 00:00:00 No [id number] 20mg QD Take 1 capsule by mouth every morning (before breakfast). [facility] drfuvarn-outsythie-ghrbukeyz (TRIPLE ANTIBIOTIC) topical pac ket 1 Packet 2018-09-26 18:30:00 2018-10-26 17:59:00 No 1{packet} [facility] povidone-iodine (BETADINE) 10 % topical applicator 1 Applica tion 2018-09-26 18:30:00 2018-09-27 06:29:00 No 1{application} [facility] lidocaine 2%-epinephrine 1:100,000 2 %-1:100,000 injection 4 0 mL 2018-09-26 18:30:00 2018-09-27 06:29:00 No 40mL [facility] triamcinolone acetonide (KENALOG-40) injection 40 mg 2018-09-26 16:45:00 2018-09-27 04:44:00 No [id number] 40mg [facility] lidocaine (PF) (XYLOCAINE) 10 mg/mL (1 %) injection 10 mL 2018-09-26 16:45:00 2018-09-27 04:44:00 No [id number] 10mL [facility] povidone-iodine (BETADINE) 10 % topical applicator 1 Applica tion 2018-09-26 16:45:00 2018-09-27 04:44:00 No [id number] 1{application} [facility] sodium hyaluronate (HYALGAN) 10 mg/mL injection 2018-09-26 00:00:00 2018-09-28 04:59:00 No [id number] 20mg 2 mL by I NTRA-ARTICULAR route once for 1 dose Please dispense 3 prefilled syringes of hyalgan (20mg/2ml) for series of three weekly injections into left knee to be administered in clinic. [facility] omeprazole (PRILOSEC) 20 mg delayed release capsule 2018-07-25 00:00:00 2018-12-03 00:00:00 No [id number] 20mg Q.5D Take 1 capsule by mouth 2 times daily. [facility] gabapentin (NEURONTIN) 300 mg capsule 2018-06-28 00:00 :00 2019-06-16 00:00:00 No [id number] 300mg Take 1 capsule by mouth 3 times daily. [facility] acetaminophen-codeine (TYLENOL/CODEINE #3) 300-30 mg per tab let 2018-06-28 00:00:00 2018-09-27 00:00:00 No [id number] 1{tbl} Take 1 tablet by mouth every 4 hours as needed for Pain. [facility] ibuprofen (MOTRIN) 600 mg tablet 2018-06-28 00:00:00 2018-08 00:00:00 No [id number] 600mg Take 1 tablet by mouth every 8 hours as needed for Pain. [facility] ferrous sulfate 325 mg (65 mg iron) tablet 2018-05-31 00:00: 00 Yes [id number] 325mg Q.5D Take 1 tablet by mouth 2 times daily. [facility] clobetasol propionate (TEMOVATE E) 0.05 % emollient cream 2018-04-19 00:00:00 2019-06-02 00:00:00 No [id number] Q.5D Apply to a ffected area 2 times daily. [facility] albuterol 90 mcg/actuation inhaler 2018-01-15 00:00:00 201 01-09-03 00:00:00 No [id number] 2{puff} Inhale 2 Puffs b y mouth 4 times daily as needed for Wheezing. [facility] fluticasone propion-salmeterol (ADVAIR DISKUS) 250-50 mcg/do se diskus inhaler 2018-01-15 00:00:00 2019-04-01 00:00:00 No [id number] 1{pu ff} Q.5D Inhale 1 Puff by mouth 2 times daily. [facility] alth Immunizations Ordered Immunization Name Filled Immunization Name Date Status Comments Source Influenza, Vaccine<FLUCELVAX>(Multi-Dose) 2019-03-04 00:00 :00 Completed [facility] Influenza, Vaccine<FLUCELVAX>(Multi-Dose) 2018-02-01 00:00 :00 Completed [facility] Tdap (Tetanus Toxoid, Reduced Diphtheria Toxoid And Acellular Pertussis, Absorbed) 2017-10-23 00:00:00 [facility] Pneumococcal Conjugate <Unspecified> 2015-09-28 00:00:00 C ompleted [facility] Vital Signs Vital Name Observation Time Observation Value Comments Source Systolic blood pressure 2019-09-09 16:32:00 98 mm[Hg] [facility] Diastolic blood pressure 2019-09-09 16:32:00 54 mm[Hg] [facility] Heart rate 2019-09-09 16:32:00 82 /min [facility] Body temperature 2019-09-09 16:32:00 36.56 Patrica [facility] Respiratory rate 2019-09-09 16:32:00 18 /min [facility] Body height 2019-09-09 16:32:00 170.2 cm [facility] Body weight 2019-09-09 16:32:00 68.675 kg [facility] BMI 2019-09-09 16:32:00 23.71 kg/m2 [facility] Oxygen saturation in Arterial blood by Pulse oximetry 07-06 20:53:00 100 /min [facility] Procedures Procedure Date / Time Performed Performing Clinician Sourc e XRAY CHEST 2 VIEWS 2019-06-16 20:19:20 Ileana Cheema [facility] XRAY FOOT 3 VIEWS MIN 2019-03-04 17:33:21 Tiffany Doug Walden [facility] TISSUE EXAM 2019-01-22 18:59:00 NeilBelle guaman [facility] CORTISOL, TOTAL 2018-12-25 15:19:00 PatytomiFrantz hillman [facility] ADRENOCORTICOTROPIC HORMONE (ACTH), PLASMA 2018-12-25 14:16:00 [facility] 24 HOUR HOLTER MONITOR 2018-12-24 14:17:40 [facility] TRANSTHORACIC [facility] (TTE) 2018-12-24 13:42:00 [facility] PYLORI STOOL AG 2018-12-19 21:24:00 [facility] WRIST 3 VIEWS MIN 2018-12-19 20:55:47 [facility] EGD 2018-12-09 05:00:00 Amy Meadows [facility] h HEMOGLOBIN A1C 2018-12-03 19:34:00 Anette Ileana [facility] BASIC METABOLIC PANEL 2018-12-03 19:34:00 [facility] CBC/DIFF 2018-12-03 19:34:[address] [facility] THYROID STIMULATING HORMONE (TSH) 2018-12-03 19:34:00 AnetteOmkar [facility] LIVER PROFILE 2018-12-03 19:34:00 AnetteIleana [facility] FREE T4 2018-12-03 19:34:00 AnetteIleana [facility] h CBC 2018-12-03 19:34:00 AnetteIleana [facility] h 12 LEAD EKG 2018-12-03 17:43:[address] [facility] UPPER GI W AIR CONTRAST 2018-11-21 16:10:55 [facility]Omkar [facility] MAMMOGRAM BILAT SCREEN DIGITAL 2018-10-25 18:22:39 [facility] SURGICAL PATHOLOGY 2018-09-26 18:30:00 Caroline Cason [facility] XRAY SHOULDER 3 VIEWS - ROUTINE 2018-09-26 17:27:49 Margareth Malone [facility] Plan of Care Planned Activity Planned Date Details Comments Source Future Scheduled Test 2020-12-18 00:00:00 Cervical Cancer Sc rn (3 Yrs) [code = Cervical Cancer Scrn (3 Yrs)] [facility] Scheduled Test 2020-01-29 00:00:00 IMM Influenza Seas onal Jan to June (>/= 19 yrs) [code = IMM Influenza Seasonal Jan to June (>/= 19 yrs)] [facility] Scheduled Test 2019-10-26 00:00:00 Breast Cancer Scrn (Yearly) [code = Breast Cancer Scrn (Yearly)] [facility] Encounters Start Date/Time End Date/Time Encounter Type Admission Type Att[facility] Care Department Encounter ID Source 2019-09-17 00:00:00 2019-09-17 00:00:00 Outpatient [facility] [id number] [facility] 2019-09-15 00:00:00 2019-09-15 00:00:00 Outpatient [facility] [id number] [facility] 2019-09-10 00:00:00 2019-09-10 00:00:00 Outpatient [facility] [id number] [facility] 2019-09-09 11:32:17 2019-09-09 11:32:17 Outpatient [facility] [id number] [facility] 2019-09-08 00:00:00 2019-09-08 00:00:00 Outpatient [facility] [id number] [facility] 2019-07-07 15:53:17 2019-07-07 15:53:17 Outpatient [facility] [id number] [facility] 2019-06-16 14:15:44 2019-06-16 14:15:44 Outpatient [facility] [id number] [facility] 2019-06-16 13:00:51 2019-06-16 13:00:51 Outpatient [facility] [id number] [facility] 2019-06-09 00:00:00 2019-06-09 00:00:00 Outpatient [facility] [id number] [facility] 2019-05-13 00:00:00 2019-05-13 00:00:00 Outpatient [facility] [id number] [facility] 2019-04-18 00:00:00 2019-04-18 00:00:00 Outpatient [facility] [id number] [facility] 2019-04-14 00:00:00 2019-04-14 00:00:00 Outpatient [facility] [id number] [facility] 2019-04-08 00:00:00 2019-04-08 00:00:00 Outpatient [facility] [id number] [facility] 2019-03-31 00:00:00 2019-03-31 00:00:00 Outpatient [facility] [id number] [facility] 2019-03-24 12:38:08 2019-03-24 12:38:08 Outpatient [facility] [id number] [facility] 2019-03-17 00:00:00 2019-03-17 00:00:00 Outpatient [facility] [id number] [facility] 2019-03-04 14:04:20 2019-03-04 14:04:20 Outpatient [facility] [id number] [facility] 2019-03-04 11:24:17 2019-03-04 11:24:17 Outpatient [facility] [id number] [facility] 2019-03-04 09:38:19 2019-03-04 09:38:19 Outpatient [facility] [id number] [facility] 2019-03-03 00:00:00 2019-03-03 00:00:00 Outpatient [facility] [id number] [facility] 2019-02-26 12:26:00 2019-02-26 13:48:00 Departed Emergency Room [facility] [id number] [facility] 2019-02-18 00:00:00 2019-02-18 00:00:00 Outpatient [facility] [id number] [facility] 2019-01-30 13:17:38 2019-01-30 13:17:38 Outpatient [facility] [id number] [facility] 2019-01-22 12:25:32 2019-01-22 12:25:32 Outpatient [facility] [id number] [facility] 2019-01-22 00:00:00 2019-01-22 00:00:00 Outpatient [facility] [id number] [facility] 2019-01-16 00:00:00 2019-01-16 00:00:00 Outpatient [facility] [id number] [facility] 2019-01-10 00:00:00 2019-01-10 00:00:00 Outpatient [facility] [id number] [facility] 2019-01-10 00:00:00 2019-01-10 00:00:00 Outpatient [facility] [id number] [facility] 2019-01-09 09:41:39 2019-01-09 09:41:39 Outpatient [facility] [id number] [facility] 2019-01-08 07:50:57 2019-01-08 07:50:57 Outpatient [facility] [id number] [facility] 2019-01-08 00:00:00 2019-01-08 00:00:00 Outpatient [facility] [id number] [facility] 2018-12-25 09:12:49 2018-12-25 09:12:49 Outpatient [facility] [id number] [facility] 2018-12-25 00:00:00 2018-12-25 00:00:00 Outpatient [facility] [id number] [facility] 2018-12-25 00:00:00 2018-12-25 00:00:00 Outpatient [facility] [id number] [facility] 2018-12-25 00:00:00 2018-12-25 00:00:00 Outpatient [facility] [id number] [facility] [facility] 2018-12-24 08:33:31 2018-12-24 08:33:31 Outpatient [facility] [id number] [facility] 2018-12-24 08:31:11 2018-12-24 08:31:11 Outpatient [facility] [id number] [facility] 2018-12-23 08:11:16 2018-12-23 08:11:16 Outpatient [facility] [id number] [facility] 2018-12-19 16:23:49 2018-12-19 16:23:49 Outpatient [facility] [id number] [facility] 2018-12-19 15:52:50 2018-12-19 15:52:50 Outpatient [facility] [id number] [facility] 2018-12-19 14:00:01 2018-12-19 14:00:01 Outpatient [facility] [id number] [facility] 2018-12-19 00:00:00 2018-12-19 00:00:00 Outpatient [facility] [id number] [facility] 2018-12-19 00:00:00 2018-12-19 00:00:00 Outpatient [facility] [id number] [facility] 2018-12-17 00:00:00 2018-12-17 00:00:00 Outpatient [facility] [id number] [facility] 2018-12-13 00:00:00 2018-12-13 00:00:00 Outpatient [facility] [id number] [facility] 2018-12-06 14:51:11 2018-12-06 14:51:11 Outpatient [facility] [id number] [facility] 2018-12-03 14:34:08 2018-12-03 14:34:08 Outpatient [facility] [id number] [facility] 2018-12-03 12:49:16 2018-12-03 12:49:16 Outpatient [facility] [id number] [facility] 2018-12-03 00:00:00 2018-12-03 00:00:00 Outpatient [facility] [id number] [facility] 2018-11-25 00:00:00 2018-11-25 00:00:00 Outpatient [facility] [id number] [facility] 2018-11-25 00:00:00 2018-11-25 00:00:00 Outpatient [facility] [id number] [facility] 2018-11-21 08:26:30 2018-11-21 08:26:30 Outpatient [facility] [id number] [facility] 2018-11-14 09:49:36 2018-11-14 09:49:36 Outpatient [facility] [id number] [facility] 2018-11-12 12:45:02 2018-11-12 12:45:02 Outpatient [facility] [id number] [facility] 2018-11-07 10:15:37 2018-11-07 10:15:37 Outpatient [facility] [id number] [facility] 2018-11-04 00:00:00 2018-11-04 00:00:00 Outpatient [facility] [id number] [facility] 2018-11-04 00:00:00 2018-11-04 00:00:00 Outpatient [facility] [id number] [facility] 2018-10-25 12:48:03 2018-10-25 12:48:03 Outpatient [facility] [id number] [facility] 2018-10-18 00:00:00 2018-10-18 00:00:00 Outpatient [facility] [id number] [facility] 2018-10-17 00:00:00 2018-10-17 00:00:00 Outpatient [facility] [id number] [facility] 2018-10-10 09:47:24 2018-10-10 09:47:24 Outpatient [facility] [id number] [facility] 2018-09-27 09:17:55 2018-09-27 09:17:55 Outpatient [facility] [id number] [facility] 2018-09-26 12:55:38 2018-09-26 12:55:38 Outpatient [facility] [id number] [facility] 2018-09-26 11:59:44 2018-09-26 11:59:44 Outpatient [facility] [id number] [facility] 2018-09-26 10:24:59 2018-09-26 10:24:59 Outpatient [facility] [id number] [facility] 2018-08-09 12:26:12 2018-08-09 12:26:12 Outpatient [facility] [id number] [facility] 2018-08-05 13:01:30 2018-08-05 13:01:30 Outpatient [facility] [id number] [facility] 2018-07-25 10:15:33 2018-07-25 10:15:33 Outpatient [facility] [id number] [facility] 2018-07-12 13:42:40 2018-07-12 13:42:40 Outpatient [facility] [id number] [facility] 2018-07-03 21:57:48 2018-07-03 21:57:48 Emergency [facility] [id number] [facility] 2018-07-03 20:01:25 2018-07-03 20:01:25 Emergency [facility] [id number] [facility] 2018-07-02 19:19:00 2018-07-02 19:19:00 Emergency [facility] [id number] [facility] 2018-06-28 06:19:00 2018-06-28 06:19:00 Outpatient [facility] [id number] [facility] 2018-06-28 00:00:00 2018-06-28 00:00:00 Outpatient [facility] [id number] [facility] 2018-06-21 13:33:08 2018-06-21 13:33:08 Outpatient [facility] [id number] [facility] 2018-06-21 11:30:50 2018-06-21 11:30:50 Outpatient [facility] [id number] [facility] 2018-06-21 00:00:00 2018-06-21 00:00:00 Outpatient [facility] [id number] [facility] 2018-06-20 00:00:00 2018-06-20 00:00:00 Outpatient [facility] [id number] [facility] 2018-06-19 09:17:31 2018-06-19 09:17:31 Outpatient [facility] [id number] [facility] 2018-06-13 00:00:00 2018-06-13 00:00:00 Outpatient [facility] [id number] [facility] 2018-06-13 00:00:00 2018-06-13 00:00:00 Outpatient [facility] [id number] [facility] 2018-06-03 14:59:57 2018-06-03 14:59:57 Outpatient [facility] [id number] [facility] 2018-05-31 11:54:25 2018-05-31 11:54:25 Outpatient [facility] [id number] [facility] 2018-05-22 00:00:00 2018-05-22 00:00:00 Outpatient [facility] [id number] [facility] 2018-05-16 13:20:06 2018-05-16 13:20:06 Outpatient [facility] [id number] [facility] 2018-04-25 13:06:31 2018-04-25 13:06:31 Outpatient [facility] [id number] [facility] 2018-04-19 09:19:49 2018-04-19 09:19:49 Outpatient [facility] [id number] [facility] 2018-04-12 12:04:38 2018-04-12 12:04:38 Emergency [facility] [id number] [facility] 2018-04-12 11:25:56 2018-04-12 11:25:56 Emergency [facility] [id number] [facility] 2018-04-12 09:45:17 2018-04-12 09:45:17 Outpatient [facility] [id number] [facility] 2018-03-28 09:05:15 2018-03-28 09:05:15 Outpatient [facility] [id number] [facility] 2018-03-26 13:08:11 2018-03-26 13:08:11 Outpatient [facility] [id number] [facility] 2018-03-18 00:00:00 2018-03-18 00:00:00 Outpatient [facility] [id number] [facility] 2018-03-11 00:00:00 2018-03-11 00:00:00 Outpatient [facility] [id number] [facility] 2018-03-06 10:00:27 2018-03-06 10:00:27 Outpatient [facility] [id number] [facility] 2018-03-05 13:15:17 2018-03-05 13:15:17 Outpatient [facility] [id number] [facility] 2018-03-01 08:07:34 2018-03-01 08:07:34 Outpatient [facility] [id number] [facility] 2018-02-26 13:16:53 2018-02-26 13:16:53 Outpatient [facility] [id number] [facility] 2018-02-19 11:28:40 2018-02-19 11:28:40 Outpatient [facility] [id number] [facility] 2018-02-13 06:04:00 2018-02-13 06:04:00 Outpatient [facility] [id number] [facility] 2018-02-11 13:38:12 2018-02-11 13:38:12 Outpatient [facility] [id number] [facility] 2018-02-01 14:16:59 2018-02-01 14:16:59 Outpatient [facility] [id number] [facility] 2018-01-30 09:09:53 2018-01-30 09:09:53 Outpatient [facility] [id number] [facility] 2018-01-28 13:03:47 2018-01-28 13:03:47 Outpatient [facility] [id number] [facility] 2018-01-22 06:02:00 2018-01-22 06:02:00 Outpatient [facility] [id number] [facility] 2018-01-22 00:00:00 2018-01-22 00:00:00 Outpatient [facility] [id number] [facility] 2018-01-15 12:47:27 2018-01-15 12:47:27 Outpatient [facility] [id number] [facility] 2018-01-15 00:00:00 2018-01-15 00:00:00 Outpatient [facility] [id number] [facility] 2018-01-11 08:48:06 2018-01-11 08:48:06 Outpatient [facility] [id number] [facility] 2018-01-10 09:39:04 2018-01-10 09:39:04 Outpatient [facility] [id number] [facility] 2018-01-10 00:00:00 2018-01-10 00:00:00 Outpatient [facility] [id number] [facility] 2018-01-08 12:51:43 2018-01-08 12:51:43 Outpatient [facility] [id number] [facility] 2018-01-07 09:01:56 2018-01-07 09:01:56 Outpatient [facility] [id number] [facility] 2018-01-07 00:00:00 2018-01-07 00:00:00 Outpatient [facility] [id number] [facility] 2018-01-01 10:29:41 2018-01-01 10:29:41 Outpatient [facility] [id number] [facility] 2017-12-24 13:44:22 2017-12-24 13:44:22 Outpatient [facility] [id number] [facility] 2017-12-24 00:00:00 2017-12-24 00:00:00 Outpatient [facility] [id number] [facility] 2017-12-19 07:17:59 2017-12-19 07:17:59 Outpatient [facility] [id number] [facility] 2017-12-18 11:16:21 2017-12-18 11:16:21 Outpatient [facility] [id number] [facility] 2017-12-13 10:53:02 2017-12-13 10:53:02 Outpatient [facility] [id number] [facility] 2017-12-11 07:35:50 2017-12-11 07:35:50 Outpatient [facility] [id number] [facility] 2017-12-06 17:26:00 2017-12-06 17:26:00 Emergency [facility] MED [id number] [facility] 2017-11-16 14:25:45 2017-11-16 14:25:45 Outpatient [facility] [id number] [facility] 2017-11-13 08:23:24 2017-11-13 08:23:24 Outpatient [facility] [id number] [facility] 2017-11-05 08:56:07 2017-11-05 08:56:07 Outpatient [facility] [id number] [facility] 2017-11-01 14:28:32 2017-11-01 14:28:32 Outpatient [facility] [id number] [facility] 2017-11-01 13:19:27 2017-11-01 13:19:27 Outpatient [facility] [id number] [facility] 2017-10-29 18:00:27 2017-10-29 18:00:27 Outpatient [facility] [id number] [facility] 2017-10-29 10:36:29 2017-10-29 10:36:29 Outpatient [facility] [id number] [facility] 2017-10-23 10:29:55 2017-10-23 10:29:55 Outpatient [facility] [id number] [facility] 2017-09-25 11:23:36 2017-09-25 11:23:36 Emergency [facility] [id number] [facility] 2017-09-25 11:17:34 2017-09-25 11:17:34 Emergency [facility] MED [id number] [facility] 2017-08-02 20:04:00 2017-08-03 02:10:00 Departed Emergency Room [facility] [id number] [facility] Results Test Description Test Time Test Comments Results Result Comments Source CHEST 2 VIEWS 2019-09-12 14:44:00 [facility] [address] [address] Patient Name: YANIQUE FERRERA MR #: [id number] : 1970 Age/Sex: 49/F Req #: [id number] Adm Physician: Ordered by: CARYN GARCIA MD Report #: [id number] Location: OR Room/Bed: Procedure: [id number] DX/CHEST 2 VIEWS Exam Date: 09/12/19 Exam Time: 1330 REPORT STATUS: Signed EXAMINATION: CHEST 2 VIEWS INDICATION: Pre-operative COMPARISON: None FINDINGS: LINES/TUBES:None LUNGS:The lungs are well-inflated. No focal consolidation or pulmonary edema. PLEURA:No pleural effusion or pneumothorax. MEDIASTINUM:The cardiomediastinal silhouette appears normal in size and shape. BONES/SOFT TISSUES:No acute osseous injury. ABDOMEN:No free air under the diaphragm. IMPRESSION: No focal pneumonia or pulmonary edema. Signed by: Ginny Flores MD on 09/12/2019 2:44 PM Dictated By: GINNY FLORES MD [id number] Transcribed By: LORRIE on 09/12/19 144 COPY TO: CARYN GARCIA MD XRAY CHEST 2 VIEWS 2019-06-16 21:33:24 IMPRESSIO N: No acute thoracic abnormality. No significant change compared to theprevious chest x-ray 06/05/2018. If the report is "FINALIZED" it indicates that the attending/staffradiologist has reviewed the images and agrees with the resident'sinterpretation. Dictated By: Hugh Lagunas MD, 06/16/2019 2:29 PM I have reviewed the study and agree with the findings in this report. Signed By: Luz Maria Tamayo MD, 06/16/2019 3:33 PM Interface, Chucho/Genia In - 06/16/2019 3:38 PM CSTEXAMINATION: XRAY CHEST 2 VIEWS, Frontal and lateralINDICATION: cough x 4 weeks, persisting. has h/o asthma COMPARISON: Chest x-ray 07/03/2018 FINDINGS: TUBES/LINES: NoneLUNGS AND PLEURA: No consolidations or edema. No effusions orpneumothorax. HEART/MEDIASTINUM: Normal cardiomediastinal silhouette.MUSCULOSKELETAL: Levoscoliosis of the lower thoracic spine.UPPER ABDOMEN: No acute findings.SOFT TISSUES: No acute findings.IMPRESSIONIMPRESSION: No acute thoracic abnormality. No significant change compared to theprevious chest x-ray 06/05/2018.If the report is "FINALIZED" it indicates that the attending/staffradiologist has reviewed the images and agrees with the resident'sinterpretation.Dictated By: Hugh Lagunas MD, 06/16/2019 2:29 PMI have reviewed the study and agree with the findings in this report.Signed By: Luz Maria Tamayo MD, 06/16/2019 3:33 PM [facility] XRAY FOOT 3 VIEWS MIN 2019-03-04 19:40:54 IMPRES NANO:Scattered degenerative change. No osseous erosion. Signed By: Jake Kern MD, 03/04/2019 1:40 PM Interface, Chucho/Genia In - 03/04/2019 1:45 PM CSTExam: Radiographs of the right footHistory: Pain. Plantar fasciitisComparison: None.DISCUSSION: No fracture or dislocation. Scattered degenerativechange. No osseous erosion. No abnormal soft tissue calcification orsoft tissue defect. I MPRESSIONIMPRESSION:Scattered degenerative change. No osseous erosion.Signed By: Jake Kern MD, 03/04/2019 1:40 PM [facility] Pathology - Tissue Exam 2019-01-24 16:49:00 Test Item Case Report (test code = [id number]) Surgical Pathology Case: [id number] Authorizing Provider: Belle Duong MD Collected: 01/22/2019 01:59 PM Ord ering Location: [facility] Received: 01/22/2019 02:35 PM Pathologist: Rosalind Meier MD Specimens: A) - Stomach, antrum, gastric antrum bx B) - Stomach, body, gastric body bx FINAL DIAGNOSIS (test code = 60187896) x2fqsTSxJOQwaZDaMlJvZVIrJTLgk5aeRJPizLAbDzVtXoJkAeDyWwspeLNiMFFbNxOqb5oyg592iABs e9klWIHpFqP7eRMzAKIdfFMnI099HJAvXYtdm4wde1OtRBXwwSHkb2I4QMBWxlrdeYq4rKzjR83yq6U9 LjwhF5bfYJYoKWZhQ8FkPG6hPJRzUzf9XQR1JRE2GA UdQLPkC8BrGF7uFLFfwGVvBRv5z6qrbCtdZNYrMSU0o4fpTGmcpdTiDW2vqk0wmXt5b3nssiGqLEVbKV OfkSVSQKFrZ8TbfZrzLk1ivSr2mGppEuyeAVY7Vdm3UL9qbl88ooj2dBunKYNtstisPeC7TTeiMJWpbi yfUBt0SQmtQKDneAKrKxamBRQhiyUvFixgKBIidIDj GjxlFWWmHlZdKrcgDABoCPK2HcGtCLYpu3EjuxqxIR5hQ3Nxs5E0oO9vtUTvNTHzwUWzHlYwAEPjei6w oEPpKEtdy9WlZAX5hoZ3jOSraRVlENQlQJ33Vtjnh6PrJqfmITC8WVQqisJpu3Qrv9urJqWwucCmH4tv V3QqMLQxKJCsLWDlBwYvplFdi2Bae8UplGRahVn8o9 qyGYDuDADioEjik8yxCNN7SFPeQ1M2wSWxu8kdYIrjAYKrcOG7luRqJunrUHYmwvO6yhYzDgfvHOKtoB J3dmVvNuqkUZXyNiG1mbMkMibkAGZxVIC9PzRiGRFvt5JdrxawAPXnb0DzY5HtdFmrO86vwRfiU95gNH QelWlbvR1rxSgadP3hCzIuNbWgDHulkYbieMChwgyk LNemfhDvMIqahebnCFDvPAncK6stIaEvQINsqAfdUSkxz5LbAXMgHSCvTyIoWG9bZUVPJ09ZF4lyYNYU OWZPWEkcOqqEVALQSgcxPSEptBWsRX3cSJ4SIvHZGV8VR54RNCBEQWSTIPETBi5ZEOLgFTGHHZXSKTeG CDlTS0NMT8FTJjQLSGzLNixjUNLMJ1VHBBPCVCJAXM YGQglYNQFrKTJjtekfIEOkQe5dQEZAP70FW9gxWACLGWojHAHFA1QKQAazpBNcRHLbRnSpYMKEDNdqSR VUN3VTAOxHNDenH1wRY01QOdZBA6DACrJkANAVAQDCEiWZMCJFIDDNXA4VGBCJZ7EKS6gVTKSXPHySY3 RSSVRJUyBccGFyfQ== Gross Description (test code = [id number]) y7unuTLoPHDghIAxBxJmNZPzAIQvn1ubKNTaxIIsHrXuVwEiOpEjJkoumMItFYShUsPdu8kng493qQCk h1aaFDGtTuZ1wIBfUJKpaIIvU777FOYuIWyhm1ixe9GfKPIgtGJbw7U2JORRwtvofXa9tWeyP64gx8V4 SradQ6tfSGVtBZHtP0UsNU4jYXNqLdp4YWR1GYF2NN XtPSGrG1DtGY0iFDButCWqQCf3r8esvQtiFFHzRKG0v9jyUNywxiMwIX6rkm7smTk2j5amqrQnJYWiEX EpiCMAWGJdE3HjxPayZo4jvTr7yReqWlcbQZA1Lgi1NB3gfg84ycw3vRbbUGEjamvwYpJ6NUkqQGSwpc jvYIj2BNqzRHUlrTXpBxvdDDApclEwZjdsTTNsvIGy NzcxAEOqNeWkAujtDGIqRRS2GdYqYVCya3JovilcBN5oT6Csq8F1yU1anCKzPDNkfIEiCoNoSNGhue0i kVTrCSjnv2YvYTV3qgC3bQTxjKFpQJIbWK24Gqokn9CvZfxlJUU6FSZldoXiz9Bkb0fvFdYfyaOfB1yd D4AaAUAkBVNdWLYyKgVuutWvc5Xke4HzaTHbnGb9h9 ofDAWfYJDkhTgoh9tmHLZ0WHPlD8F6rTArs5hlMNazKPIeoWQ0nuOdIfkiWZRrpqF1zpDiEpzgZNLemA F0hvQvRfnjZPIaSuM9yjYrJliuXSJuIVG9ZgHsTOIkp6MwlnlzEPHef8GyU8AlxHnlD41xnRmsT42lNI WcsJdewT0sqRuzwE5pHlGuKcGcRVaxLIKbVIIttQLc DAU7cFDtshLazEk7VzXiuQddHUZvSOU8JdG8YXl8pCM4CBUnnLsvMuJpKKE3KPGnCAl6aQAkPLBlxZl7 NrBkRXA2BhY7RSb7xBnhRHJbvWt8LKYrYUP8VOA4STo1lAopYtVkjXptQUC9EBhqkFxtuYHyvgqcYHjv vtGbWVmhqkktXTIiUNsfP3frDeOxKJEduLtrHAkvn7 YoAJTpPVBaFlfrhiEoMDDjN6NeL9kwTK7yMVL9CBCxQOw0XEGqmPuqvZ8oHwYnLtYcQYwrDF1mVUEhM4 mlqCImZNLpYXWdD7piBrUfcL8oqPhgZVmrhqVvJOOsNOzud7BfjSDrEL95ymEuYVMtn1DqvZgyJi9qI8 XfmZYnDoDuv3N4XZYcg5FkaDduGNOyxOMgLXZjtqGw p7AnRYBtUUE6GDhwQZtpbRcowKZsdpnfMJzynkI4NHZbUJcnCHVuSLUrVfYwcBDqDwFzUnYgmNacvJnk LDjfIgVlYUMmDJxsZ2goCgBhTlZaEKKLkPYnR4VoUWHwnpBiLSBgwIHeOBScdiY2w88fvPNwiHPxcUGx ZOjaLWH2cKWvFDOzTCSmBJYzRL90B1OzxgJuFCGdD6 5LHVHsRHBXSnQxP6lHZBLpAB1kQKszULuazuVdd8UaMY15zDDlrkOkqhEuR9c6SJ3nLAZdMSZnyI1rGU 04cDWwctMVHFdqIWVjVqTkDSUhDNMkvGBgllDxN1KvrZWdbieqLXEqlIYwWDQztJWkk2k2pT1iPDRjaj 0edQHjPKzkLUR9gIZgQZHlBHIbTM9aUX1qvPNsWZ9g SYJcD2Yuv7zvhvRscC7kECZiIWLbvsbxOXFdQBEcfMQXBgKoCoTvHOy3BKCgtC2yBt6blMHgnD6jrNBn PHtrQIIzC9PGHRIOXeABZzBIKC3pEBeXW9CYPDRSNTYUZsyRMJKMBEDJZARrUrRrdiJbRgt4GKW8AN8d pImzfxB8zAYltSCnUGXujhqjdnsdQpQiaXZoEtFlnC 9sWR05RPAbRStgREgkYXN1XZD3OGPffDKvw4cyft1oBRFxSAHmiCGsvZ9atmGqxaObfUOrsJR8JGLwaL 6ogO08shLexhQjIUTbZRG8STHZRY0zDXOahtrdUBMtGDOtlJBVLoXfOfKnWRt0PABojY5aBd1kdHWliU 8jqDGuIMriGOCmC8KLNMLPJjCSY6JUDTZSD3WJEHxj H9EEBIHQMrGAO3PFARGYI7EJLAUxLdFmhfPatQjbECYbrz7lmQ7eTBUaz1W9QOOzeAWti5HquE8wHBDp KnAoecIuHT06FIWuLTslWEcbDKR3KPN3OUIfmGTqz3aovi7nKPTvPBMsbWOfaE2gikRyhiErcWRfkWZ2 QYGvsH0vzH71orMkwnFrJKIfRTV4LWTISJ6wERPiqu feDEYxmZXwLOkvlRSfpyukKGdlzaC0GFBbBCcjEBBcCKMrVFLwfDCeQfJbIhWeoZsipQsyZWepDwEaTO YzWVzjE0bnEqTzR7UkTODoPERaF07zJGNmINBtVFNherVFRDOun9qtK8dgBASzaPR3AU69DMlcqNHvua xyAHtzcaEkDGohrbvoTUQcSLltA6qmPoBgNFNaqWjo KUiqg2QiICSjJGOiAkWevGOrPCHzRRHiQJymHJUpEMIzVbJhdYtjeO7mDkXsUxKnSPaiGD1dJHPhM2np rENiUKMmLDYmV3duSvYijE0gkUdkYItnyvLeNLTyhh3= Microscopic Description (test code = [id number]) a5exdPZxDQRkzKEsZfRtATOzIKGlm8nbODDsqPWgHvTcKiXqQeJwRqrquYGnYCLxIoZdl2you648lTZk h8unJOByNoP4qINrJRAfsWByI454SPUaWPoul7upk9HsZVMerMRmj2Z5XTTUrfxzoWn9qIskH72kl1F4 ZptkB8nfTXRzNYWuE8SrZH9nYFPfSmr7TTA1LQS9AE YnQLAaJ0JkKN2aMOZiuMQlKMa3d3lwtBkoCZHcDLD2r2zpAIxsgqRiWT1mhy2ytOb8k3kgfkSkNCRyTI VxbAXXWUGaZ4EfxTxtDr3fxSc7zDgdFxiwLYN6Gtw7UO8wuu34kgd5uZvkBZBhgglhYrZ1ZBoiSFLnwk muSMa0WOhvAAMbxKKdPiibARCqxcEwVxktQOVlhMEd VoqvSZXcPyNxTpffJBEfTQD3RuFlEEAlf2CvelyfCB6vD5Bhc1X0hI7rdUQdIZKgjJIjGwCuVUAbyo6u dFEyVGvmn3ReJOM6exE8qVDlcXJsNDGeSN03Kmine0YgWyngMVA2ARBwlrUqu2Ido0ctLrHaqtUpF7ii V3PcFJFkBKFnDJAgCiStcgMgz3Ffv9HhoPIsoPk3x1 zgBFXeACKxqQxvy2thWZF7QCRlL9B2vOAnf2fuLErtRGJohDG2jcRbPhzjNLIsteU3ghVnOebjTYYmzE Y0ymUrPgteQJQjVuK7vqSkQsvlIQPsJAG5BjGbHGBye3StscwiSVHeo7PgT3ZruLiwM35hgPduO41lDM ClzDsvzH9riTklmP5lSuFwYbFuCBevJSWbZYIbNHjo JARqAGVoKvRfyHPxAmJjIyXslPwahUugNFmtHpZbZHPcSTneE4azEpOiUqRxNEGPPBTvLBKDHNTgl5Lq JYTiOEVvmoewqZPgutmwLCjvleDjOIjgrvgnSNKlADrpB4qfDnQzVSGtmXyoMCsbi1SkHLKpVEWrIwwz fqMwSISneaqgnCBgblbbTDdbfeD7PMeijuqdOQKbXG udW5anWpDqKELrpAicFJbxn0TzMFPhLATfEccqnlK3IScmpEL9GFCfAVBzt56eqOw1OBSchlglh7CvPO UqFGTpPKzfgoJzrJCqveYxBRKhkNnfrvVzHy9xATPhFCSbaXAtzI6lnrmjSHvgorO1tXC0JULlBR9nIJ HomoMtRKF5nTFfHLElORWiZTOxVKJevK2oBYnfh0hz umXbjjKbvaXeLDQaqStgux4dcLuvaN9pYzXbVpAfIAfuQH9lWEJcU7klnZUtOWOpNYAbT5zsOtQerI0j eSqrNZksfhHnZUHlhckvzSrndPXspsvgOZecnxC5ZKXjYCjoUURqUKEcRjOpqEEqGqArAwHzzEdtxKne OCahVqAiIWRgUTwnM0yuBfOxXgNyHKbbKBL6 [facility])2018-12-27 19:10:00* Test Item Value Reference Range Interpretation Comments ACTH, Plasma (test code = 2141-0) 13 pg/mL 7.2-63.3 ACTH reference interval for samples collected between 7 and 10 AM. CHANDANA (test code = CHANDANA) Performed at: [address] [place] [address] [id number] Director: Jayesh Plasencia MD, Phone: [phone] Osvaldo StaffordCortisol, [id number] 14:20:00* Test Item Value Reference Range Interpretation Comments Cortisol, Total (test code = 60184998) 10.6 ug/dL See Comment. (AM) Reference Range: 6.7-22.6 mcg/dL (PM) Reference Range: <10 mcg/dL [place] [id number] [address]TER [id number] 11:12:2324 H[address] HOLTER MONITOR [facility] Test Date: [id number] Name: BINH FERRERA Department: Room: Gender: F Proof Coins Inspector: NATALIE HERNANDEZB: 1970 Requested By: ILEANA CHEEMA Order Number: [id number] Stephanie MD: April Pozo M.D. Interpretive StatementsPREDOMINANT RHYTHM IS SINUSHR RANGE: 47-126 BPMLONGEST PAUSE: 1.4 SECOCCASIONAL PACS AND SHORT RUNS OF ATRIAL TACHYCARDIARARE PVCSNO HEART BLOCK Electronically Signed On 12-26-2018 6:12:19 CDT by April Pozo M.D. [facility]2018-12-24 16:04:00TRANSTHORACIC ECHO (TTE) Transthoracic Echo Report BINH FERRERA Age: 48 Gender: F : 1970 Exam Date: 12/24/2018 08:42 Exam Location: [facility] Echo Ordering Phys: ILEANA CHEEMA Referring Phys: ILEANA CHEEMA Phys: Ruth Ann Vivar MD Fellow Phys: Fellow Phys: Email Marketing Intern: Natalie Pearson Reason For Exam: Indications: abnormal EKG, tachycardia, intermittent palpitations, Abnormal electrocardiogram ICD-9 Codes: R94.31 Exam Type: TRANSTHORACIC ECHO (TTE) Procedure CPT: 57893 Addtional CPT: Ht (in): 67 BSA: 1.71 [...] Volume 26.9 cm LA Volume Index 15.7 cm/m2 16 - 34 cm/m2 LV Mass by linear method 88.1 g LV Mass by linear method Index 51.4 g/m2 DOPPLER LVOT Peak Velocity 85.8 cm/s LVOT [...] systolic function. Right Atrium Normal right atrial si ze. Left Atrium Normal left atrial size. IAS Mitral Valve Mitral valve s tructurally/functionally normal. Aortic Valve The aortic valve is trileaflet and opens well. Tricuspid Valve Normally structured tricuspid valve. Mild tri cuspid regurgitation (normal variant). Right ventricular systolic pressure est imated to be within the normal range. Pulmonic Valve Grossly normal pulmoni c valve. Pericardium No pericardial effusion. Aorta Normal size aortic brent t adjusted for BSA. IVC RA pressure is 0-5 mmHg. CONCLUSIONS Normal left v entricular size. Normal left ventricular wall thickness. Normal left ventricul ar systolic function. Left ventricular ejection fraction is 55- 59%. There are no regional wall motion abnormalities noted. Normal LV relaxation, normal LV f illing pressures. Normal right ventricular size and systolic function. Right ventricular systolic pressure estimated to be within the normal range. No pr ior study for comparison. Ruth Ann Vivar MD (Electronically Signed) Final Date: 24 December 2018 11:03 2D ECHO LV Diastolic Diame ter PLAX 4.8 cm 4.2-5.8 (M) / 3.8-5.2 (F) LV Systolic [place] meter PLAX 3.1 cm 2.5-4.0 (M) / 2.2-3.5 (F) LV Fractiona l Shortening PLAX 36.2 % IVS Diastolic Thickness [...] Volume 26.9 cm LA Volume Index 15.7 cm/m2 16 - 34 cm/m2 LV Mass by linear method 88.1 g LV Mass by linear method Index 51.4 g/m2 DOPPLER LVOT Peak Velocity 85.8 cm/s LVOT [...] E to LV E' Lateral Ratio 6.5 [facility] P[facility] Stool [id number] 02:06:00* Test Item Value Reference Range Interpretation Comments H. pylori Stool Ag, EIA (test code = 77275-2) Negative CHANDANA (test code = CHANDANA) Performed at: [address] [place] [address] [id number] Director: Laureano Mckoy MD, Phone: [phone] Merged with [facility] WRIST 3 VIEWS [id number] 15:26:23IMPRESSION: No acute radiographic abnormality. Mild scattered degenerative changes. Dictated By: Robson Gordillo MD, 12/20/2018 8:15 AM I have reviewed the study and agree with the findings in this report. Signed By: Jake Kern MD, 12/20/2018 10:26 AM Interface, Rad/Mammog In - 12/20/2018 10:31 AM CDTEXAM: Radiographs of the right wristTECHNIQUE: 3 image(s)HISTORY: right wrist pain, prior h/o fracture, tenderness over thedistal radial head COMPARISON: None DISCUSSION:Bone:No acute displaced fracture.No aggressive osseous lesion.Joints:Mild scattered d egenerative changes. No dislocation.Soft tissues:Appear unremarkable.IMPRESSIONI MPRESSION: No acute radiographic abnormality.Mild scattered degenerative changes . Dictated By: Robson Gordillo MD, 12/20/2018 8:15 AMI have reviewed the study and agree with the findings in this report.Signed By: Jake Kern MD, 12/20/2018 10:2 6 [id number] 05:00:00TEXTPatient Name BINH FERRERA of 1970Record Number [id number]/Time of Procedure 12/09/2018, 00:00:00Endoscopist Belle Simon MD./Fellow INDICATIONS FOR EXAMINATION: Dysphagia. PROCEDURE PERFORMED: EGD - EGD with biopsy single/multiple INSTRUMENTS: [id number]: TOLERANCE: Good VISUALIZATION: Good MEDICATIONS: MAC AnesthesiaASA CLASSIFICATION: IIANALGESIA: Anesthesia PROCEDURE TECHNIQUE:Prior to the procedure, a History and Physical [...] of the esophagus, stomach and duodenum was perfo rmed. FINDINGS:The upper, middle, and lower esophagus appeared normal.The GE bea ction was normal.There was edema, erythema and some erosions in the antrum with mild deformity. No obvious masses or polyps were seen. This area was biopsied us ing cold biopsy forceps. Otherwise the gastric cardia, fundus, body, were normal . Biopsies were taken in a separate jar from the bodyThe pylorus, duodenal bulb, and descending duodenum through the second portion of the duodenum appeared nor mal. SPECIMEN COLLECTED: Yes 1 ENDOSCOPIC DIAGNOSIS:1. ANtral erythema, edema s/p biopsies2. Otherwise normal upper endosocpy RECOMMENDATIONS:1. Follow up pat hology2. PPI daily3. Follow up with GI clinic COMPLICATIONS:None. None ESTIMATE D BLOOD LOSS: None BLOOD PRODUCTS ADMINISTERED: NoneGRAFT/IMPLANT: None TOTAL PROCEDURE TIME: TOTAL SEDATION TIME: COMMENTS: CPT CODE:36979 Esophagogastr oduodenoscopy, flexible, transoral; with biopsy, single or multipleICD CODE:R13. 1 Dysphagia I was present during the entire viewing portion of the procedure. I personally reviewed the images and report prepared by the resident or fellow and agree with the findings. After the procedure was completed, the patient was taken to the recovery in good condition. This Procedure was electronically sign ed of on :01/22/2019 2:07:45 PM By Belle URIASEast Adams Rural HealthcareHemoglobin A1C 2018-12-04 17:05:00* Test Item Value Reference Range Interpretation Comments Hemoglobin A1c (test code = 4548-4) 5.0 % 4.3-6.1 Estimated Average Glucose (test code = 14464789) 97 mg/dL 70-11 0 Lab Interpretation (test code = 20446-5) Normal [facility]CBC/[id number] 13:47:00* Test Item Value Reference Range Interpretation Comments WBC (test code = 6690-2) 11.2 K/uL 4.5-11 H RBC (test code = 789-8) 4.97 4.20- 5.40 M/uL Hemoglobin (test code = 718-7) 14.9 g/dL 12-16 Hematocrit (test code = 4544-3) 47.2 % 37-47 H MCV (test code = 787-2) 95.0 fL 82-92 H MCH (test code = 785-6) 30.0 pg 27-32 MCHC (test code = 786-4) 31.6 g/dL 32-36 L RDW (test code = 33578-9) 46.2 fL 36.4-46.3 Platelet (test code = 777-3) 417 K/uL 150-400 H Mean Platelet Volume (test code = 64794-1) 10.9 fL 9.4-12.4 Percent NRBC (test code = 73610519) 0.0 % Neutrophil (test code = 770-8) 79.7 % 34-70 H Lymphs (test code = 736-9) 12.2 % 20-50 L Monocytes (test code = 5905-5) 6.0 % 5-12 Eos (test code = 713-8) 1.4 % 0.7-5 Basos (test code = 706-2) 0.4 % 0.1-1.2 Immature Granulocytes (test code = 96541928) 0.3 % 0-0.5 Neutrophils (Absolute) (test code = 77058553) 8.90 K/uL 1.56-6.1 3 H Lymphs (Absolute) (test code = 41545799) 1.36 K/uL 1.18-3.74 Monocytes(Absolute) (test code = 51779548) 0.67 K/uL 0.24-0.36 H Eos (Absolute) (test code = 52121204) 0.16 K/uL 0.04-0.36 Baso (Absolute) (test code = 79620847) 0.05 K/uL 0.01-0.08 Immature Grans (Abs) (test code = 94795790) 0.03 K/uL 0-0.03 Absolute NRBC (test code = 28805396) 0.00 K/uL Lab Interpretation (test code = 24029-0) Abnormal [facility] [id number] 12:51:00* Test Item Value Reference Range Interpretation Comments Free T4 (test code = 97620659) 0.73 ng/dl 0.61-1.18 Lab Interpretation (test code = 65900-2) Normal [facility] [Thyroid Stimulating Hormone]2018-12-04 12:31:00* Test Item Value Reference Range Interpretation Comments TSH (test code = 56632429) 1.09 0.57- 3.74 uIU/mL If , please see the following reference ranges (not verified by lab): 1st Trimester: 0.05 -3.70 uIU/mL2nd Trimester: 0.31 -4.35 uIU/mL3rd Trimester: 0.41 - 5.18 uIU/mL Lab Interpretation (test code = 36651-7) Normal [facility] Metabolic [id number] 12:12:00* Test Item Value Reference Range Interpretation Comments Sodium (test code = 2951-2) 142 mmol/L 136-145 Potassium (test code = 2823-3) 4.0 mmol/L 3.5-5.1 Chloride (test code = 2075-0) 105 mmol/L 98-107 CO2 (test code = 07719974) 27 mmol/L 21-31 Urea Nitrogen (test code = 11125352) 13.0 mg/dL 7-25 Creatinine (test code = 54062124) 1.0 mg/dL 0.6-1.2 Glucose (test code = 33117438) 64 mg/dL 70-110 L Calcium (test code = 36004713) 9.8 mg/dL 8.6-10.3 GFR, Estimated (test code = 00799942) 59 >=90 mL/min/1.73 m2 L Anion Gap (test code = 07700698) 10 mmol/L 5-16 Lab Interpretation (test code = 78603-1) Abnormal [facility] [id number] 12:12:00* Test Item Value Reference Range Interpretation Comments Bilirubin, Total (test code = 2885-2) 0.6 mg/dL 0.2-1.2 Alkaline Phosphatase (test code = 37470600) 80 U/L 34-104 AST (test code = 42629038) 19 U/L 13-39 Direct Bilirubin (test code = 1968-7) 0.1 mg/dL 0-0.2 ALT (test code = 99133298) 19 U/L 7-52 Albumin (test code = 23918-7) 4.4 g/dL 3.7-5.3 Lab Interpretation (test code = 61561-7) Normal [place] [address] LEAD [id number] 19:59:1312 LEAD EKG FOR [facility] Test Date: 7744-29-00[place] Name: BINH FERRERA Department: Room: Gender: F Proof Coins Inspector: [id number]: 1970 Requested By: ILEANA CHEEMA Order Number: [id number] Reading MD: Daina Powell MD MeasurementsIntervals [place] Rate: 94 P: 63PR: 140 QRS: 77QRSD: 90 T: 68QT: 335 QTc: 420 Interpretive StatementsSINUS RHYTHMPOSSIBLE LEFT ATRIAL ENLARGEMENTElectronically Signed On 12-03-2018 14:59:10 CDT by Daina Powell [facility] UPPER GI W AIR PQQDSUDU1214-01-14 14:45:51IMPRESSION:1. Mobile polypoid antral mass , suggestive of benign lesion. Recommendendoscopy for further evaluation.2. Thickened gastric folds consistent with chronic gastritis. Recommendchecking for H. pylori.3. Small sliding hiatal hernia.4. Normal esophagus with no obstruction or narrowing. This [facility] radiology report is a preliminary resident dictation untilfinalized by an attending. Changes to this preliminary report may occurin an additional preliminary or finalized version. Dictated By: Gely Parker MD, 11/21/2018 4:10 PM I have reviewed the study and agree with the findings in this report. Signed By: Ashely Wolf MD, 11/22/2018 9:45 AM Interface, Rad/Mammog In - 11/22/2018 9:50 AM CDTEXAM: FLUOROSCOPY UPPER GI CONTRASTDATE: 11/21/2018 11:11 AM INDICATION: Feeling of liquids and solids getting stuck in esophagus.Esophageal dysphagia ADDITIONAL INFORMATION: Stabbing pain in throat, weight loss, reportedhistory of refluxCOMPARISON: None. TECHNIQUE: Barium upper GI was performed using double contrast techniqueorally. FLUOROSCOPY TIME: ft: 345 secs, tdap: 47.51 Gycm^2DISCUSSION: Preliminary radiograph: Normal abdomen and lateral neck.Swallowing: Normal.Esophagus: Motility: Adequate opening of the upper and lower esophagealsphinctrers.Anatomy: Normal caliber with no esophageal narrowing. No fillingdefects, mucosal irregularities, obstructions or extrinsic compressionsidentified.Hiatal hernia: Small sliding hiatal herniaGastroesophageal reflux: None.Stomach: Thickening of gastric folds. Polypoid dynamic structure alonglesser curvature in gastric antrum, allow ing peristalsis through andprolapsing into duodenum with peristalsis.Duodenum: Normal.IMPRESSIONIMPRESSION:1. Mobile polypoid antral mass , suggestive of kar gn lesion. Recommendendoscopy for further evaluation.2. Thickened gastric folds consistent with chronic gastritis. Recommendchecking for H. pylori.3. Small sl iding hiatal hernia.4. Normal esophagus with no obstruction or narrowing.This [facility] radiology report is a preliminary resident dictation untilfinalized by an at tending. Changes to this preliminary report may occurin an additional prelimina ry or finalized version.Dictated By: Gely Parker MD, 11/21/2018 4:10 PMI have reviewed the study and agree with the findings in this report.Signed By: Ashely Wolf MD, 11/22/2018 9:45 [facility] 2018-10-25 18:23:00IMPRESSION: NEGATIVEThere is no mammographic evidence of malignancy. A 1 year screening mammogram is recommended. This document has been electronically signed. Jung Rod M.D., mc/ward:10/25/2018 13:23:59 Boot Lace Cutter Machine: Ms. Yesica Santos RT(R)(M), [facility] Mammography Normal Mammogram BI-RADS: 1 Negative G0202 z12.31Interface, Rad/Mammog In - 10/25/2018 2:22 PM CDT#[id number] - MAMMOGRAM BILAT SCREEN DIGITALBILATERAL DIGITAL SCREENING MAMMOGRAM WITH CAD: 10/25/2018CLINICAL: Screening for malignancy. Comparison is made to exam dated: 11/05/2017 [facility]. There are scattered fibroglandular elements in both breasts that could obscure a lesion on mammography. Current study was also evaluated with a Computer Aided Detection (CAD) system. No significant masses, calcifications, or other findings are seen in either breast. IMPRESSIONIMPRESSION: NEGATIVEThere is no mammographic evidence of malignancy. A 1 year screening mammogram is recommended. This document has been electronically signed.Jung Rod M.D., mc/ward:10/25/2018 13:23:59 Boot Lace Cutter Machine: Ms. 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 Clinical Impression: NF. Specimen Material: Excision, left upper abdomen. Gross DescriptionThis case consists of one part: Part A: Received in formalin labeled with the patient's n cecy and medicalrecord number and "LEFT UPPER ABDOMEN ON THE REQUISITION". It co nsists of a1.2 x 0.5 cm unoriented, davila, elliptical skin excision which is excis ed to adepth of 0.5 cm. The epidermis displays a 0.4 x 0.3 cm ill-defined,davila-w elizabet lesion which abuts the peripheral skin margin. The resectionmargins are in ked black and the specimen is serially sectioned to reveal thelesion appears con fined to the epidermis and the subcutaneous soft tissue iscomprised of davila-white , fibrotic soft tissue. The specimen is entirelysubmitted as follows: A1: tips A2: remainder of skin with lesion Jeremy Pittman/[id number] Supervisor Hanging And Trimming Micr oscopic DescriptionA microscopic examination has been performed and the findings areincorporated in the diagnosis above. The positive and negative controls fora ll histochemical and immunohistochemical stains, if performed for thiscase, have been reviewed and, unless otherwise noted, have been found to beappropriate. No tably, sections show a benign proliferation of dermal nerveswith notable eosinop hils. Electronically Signed OutHina Malone M.D./[id number] Patholo [facility] CenterXRAY SHOULDER 3 VIEWS - [id number] 18:14:25 IMPRESSION:No acute or degenerative changes identified. Signed By: Francois pittman MD, 09/26/2018 1:14 PM Interface, Rad/Mammog In - 09/26/2018 1:19 PM CDTEXAM: XR LEFT SHOULDER 3 VIEWSDATE: 09/26/2018 12:28 PM INDICATION: left shoulder pain Acute pain of left shoulder COMPARISON: None availableTECHNIQUE: Left shoulder - 3 viewsFINDINGS:No fracture, periosteal reaction, or erosions identified.Joint alignment is normal.Soft tissues are unremarkable.IMPRESSIONIMPRESSION:No acute or degenerative changes identified.Signed By: Francois Fam MD, 09/26/2018 1:14 PMBrooklyn P4RC
--- NOTE | 2019-09-16 08:43 | Operative Report ---
DATE OF PROCEDURE: 09/16/2019 SURGEON: Corwin George MD MANAGER GENERAL: Fady Penny, certified PA. PREOPERATIVE DIAGNOSIS: Left knee recurrent medial meniscal tear. 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 PROCEDURE: Revision left knee arthroscopy, chondroplasty of the medial femoral condyle, chondroplasty of the lateral femoral condyle, removal of loose bodies. INDICATIONS: The patient is a 49-year-old lady, who complains bitterly of left knee pain. She is status post an arthroscopy at an outside institution about a year and a half ago. She says the knee has persistently bothered her. Clinic exam and MRI are vaguely suggestive of a recurrent medial meniscal tear. The patient states she has failed extensive conservative management and is highly motivated to proceed with more aggressive intervention. The risks and benefits of arthroscopy have been discussed. The possibility of persistent symptoms have been discussed. Preoperatively, she complains of numbness on the inside of her knee. I explained that this is not something that we intend to address or can address through arthroscopy. All of this has been explained to the patient. She states she understands and wishes to proceed. PROCEDURE IN DETAIL: The patient was brought to the operating room and placed under general anesthetic. Her left lower extremity was prepped and draped in a sterile manner. A preoperative time-out was performed. She received prophylactic antibiotics in the holding area. Arthroscopy portals were established. The inferolateral portal from the previous surgery was far too superior and could not be utilized. The knee was insufflated with sterile saline and systematically inspected. The suprapatellar pouch was unremarkable. The patellofemoral groove showed some grade 1 changes of chondromalacia without evidence of unstable margins. There was a small developing medial osteophyte. The medial compartment was carefully inspected and probed. There was some grade 2 chondromalacia of the medial femoral condyle. Unstable margins were gently debrided using a mechanical shaver. The meniscus was thoroughly probed and photographed. There was no evidence of a meniscal tear communicating with the articular surface anywhere. Small fragments of loose floating cartilage were removed. The cruciate ligaments were inspected and probed and were unremarkable. The lateral compartment also revealed some fragments of loose free-floating cartilage. These were excised with a mechanical shaver. Gentle chondroplasty of the lateral femoral condyle was also necessary to contour unstable margins. The gutters were inspected and noted to be free of loose bodies. The knee was thoroughly irrigated and the arthroscopic instruments were removed. The portal incisions were closed with nylon stitches. A sterile bandage was applied. The patient was extubated and transported to the recovery room in stable condition. There was no blood loss and all needle and sponge counts were correct. Corwin George MD DR/NIHARIKA /[id number]
[2019-09-16 09:35] VITALS: BP 100/68
== END | disposition home or self-care (01) ==
LOC: OR 05:36
PROVIDERS: ATTEND Specialist
DX: S83.232A Complex tear of medial meniscus, current injury, left knee, initial encounter (principal); M17.12 Unilateral primary osteoarthritis, left knee; M22.42 Chondromalacia patellae, left knee; M75.42 Impingement syndrome of left shoulder; J45.909 Unspecified asthma, uncomplicated; F17.210 Nicotine dependence, cigarettes, uncomplicated; X58.XXXA Exposure to other specified factors, initial encounter; Z98.890 Other specified postprocedural states; Z88.6 Allergy status to analgesic agent; Z01.810 Encounter for preprocedural cardiovascular examination; Z01.812 Encounter for preprocedural laboratory examination; Z01.818 Encounter for other preprocedural examination; Z11.59 Encounter for screening for other viral diseases
CPT/HCPCS: 29877; 36415; 71046; 85025; 86850; 86900; 87635; 93005; J0690; J1100; J1200; J1885; J2001; J2250; J2405; J2704; J2765; J3010

== ENCOUNTER 2019-11-13 19:39 | Emergency (ER) | payer OTHER ==
[~2019-11-13] VITALS: Ht 170.2 cm; Wt 62.1 kg
[~2019-11-13 19:39] MED LIST changes: -CEFAZOLIN SOD 1 GM/NS 50ML 50 ML IV ONE; -DEXAMETHASONE SOD PHOS INJ 4 MG/ML VIAL ONE; -DIPHENHYDRAMINE HCL INJ 50 MG/ML VIAL ONE; -FENTANYL CITRATE/PF 100MCG/2 ML INJ ONE; -KETOROLAC TROMETHAMINE 30 MG/ML VIAL ONE; -LIDOCAINE HCL 2% LOCAL INJ 5 ML SDV VIAL INJ ONE; -METOCLOPRAMIDE HCL 10 MG/2ML VIAL ONE; -MIDAZOLAM HCL 2 MG/2 ML VIAL ONE; -ONDANSETRON HCL INJ 2MG/ML 2ML 2 MG/ML VIAL ONE; -PROPOFOL IV EMULSION 10 MG/ML 20 ML VIAL ONE; -SEVOFLURANE INHAL SOLN 250 ML PEN BTL ONE
--- NOTE | 2019-11-13 20:17 | Emergency Department Note ---
History of Present Illnes History of Present Illness Chief Complaint: Extremity Trauma/Pain History of Present Illness This is a 49 year old female with R knee pain after she attempted to catch her invalid spouse from falling. Ambulatory . Historian: Patient Arrival Mode: Car Program Consultant Required: No Onset (how long ago): week(s) (1) Location: Right knee pain Radiation: Reports extremity Severity: mild Onset quality: gradual Duration (how long): week(s) (1) Timing of current episode: constant Progression: worsening Context: Reports trauma/injury Relieving factors: immobilization, rest Exacerbating factors: movement Associated symptoms: Denies denies other symptoms, Denies confusion, Denies chest pain, Denies cough, Denies diaphoresis, Denies fever/chills, Denies headaches, Denies loss of appetite, Denies malaise, Denies nausea/vomiting, Denies rash, Denies seizure, Denies shortness of breath, Denies syncope, Denies weakness, Denies other Treatments prior to arrival: none Past Medical/Family History Physician Review I have reviewed the patient's past medical and family history. Any updates have been documented here. 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 Past Surgical History: Cholecysctectomy, Appendectomy, Hysterectomy, Tubal Ligation Other Surgery: LEFT KNEE SURGERY Social History Smoking Cessation: Never Smoker Alcohol Use: None Any Illegal Drug Use: No Other Last Tetanus: UTD Review of Systems Review of Systems Constitutional: Reports no symptoms EENTM: Reports no symptoms Cardiovascular: Reports no symptoms Respiratory: Reports no symptoms Gastrointestinal: Reports no symptoms Genitourinary: Reports no symptoms Musculoskeletal: Reports joint pain Integumentary: Reports no symptoms Neurological: Reports no symptoms Psychological: Reports no symptoms Endocrine: Reports no symptoms Hematological/Lymphatic: Reports no symptoms Physical Exam Related Data Allergies: Coded Allergies: tomato (Verified Allergy, Unknown, HIVES, 09/10/19) tramadol (Verified Allergy, Unknown, N/V, DIZZINESS, ITCHING, 09/10/19) Triage Vital Signs Vital Signs Date Time Temp Pulse Resp B/P (MAP) Pulse Ox O2 Delivery O2 Flow Rate FiO2 11/13/19 20:14 98.2 89 17 122/75 100 Room Air Vital signs reviewed: Yes Physical Exam CONSTITUTIONAL Constitutional: Present well-developed, Present well-nourished HENT HENT: Present normocephalic, Present atraumatic, Present oropharynx clear/moist, Present nose normal HENT L/R: Present left ext ear normal, Present right ext ear normal EYES Eyes: Reports PERRL, Reports conjunctivae normal NECK Neck: Present ROM normal PULMONARY Pulmonary: Present effort normal, Present breath sounds normal CARDIOVASCULAR Cardiovascular: Present regular rhythm, Present heart sounds normal, Present capillary refill normal, Present normal rate GASTROINTESTINAL Abdominal: Present soft, Present nontender, Present bowel sounds normal GENITOURINARY Genitourinary: Present exam deferred SKIN Skin: Present warm, Present dry MUSCULOSKELETAL Musculoskeletal: Present tenderness (right lateral knee) NEUROLOGICAL Neurological: Present alert, Present oriented x 3, Present no gross motor or sensory deficits PSYCHOLOGICAL Psychological: Present mood/affect normal, Present judgement normal Results Imaging Imaging results reviewed: Yes Impressions [place] [address] Patient Name: BINH FERRERA MR #: [id number] : 1970 Age/Sex: 49/F Req #: [id number] Adm Physician: Ordered by: JOHN LOPEZ DO Report #: [id number] Location: ER Room/Bed: Procedure: [id number] DX/KNEE RIGHT THREE VIEWS Exam Date: Exam Time: REPORT STATUS: Signed X-ray site and # of views HISTORY: Pain. COMPARISON: None available. FINDINGS: Bones/joints: No fracture or dislocation. No significant degenerative changes identified. Soft tissues: No focal soft tissue abnormality. IMPRESSION: No osseous or soft tissue abnormality identified. Signed by: Lesley Leyva MD on 11/13/2019 8:50 PM Dictated By: LESLEY LEYVA MD 49 Transcribed By: LORRIE on 11/13/192049 COPY TO: JOHN LOPEZ DO~ Assessment & Plan Medical Decision Making MDM Diff Dx : fx, dislocation, contusion, sprain, strain Assessment & Plan Final Impression: (1) Right knee pain Depart Disposition: HOME, SELF-detention Meds Reported Medications Acetaminophen (ACETAMINOPHEN) 325 Mg Tablet, 500 MG PO PRN for 5 Days, TAB 09/10/19 Acetaminophen With Codeine (TYLENOL WITH CODEINE #3 TABLET) 1 Each Tablet, 300 MG PO PRN, TAB 09/10/19 Albuterol Sulfate (PROVENTIL HFA) 6.7 Gm Hfa.aer.ad, 2 INH INH PRN, INH 09/10/19 Fluticasone/Salmeterol (ADVAIR 250-50 DISKUS) 1 Each Disk.w.dev, 2 INH INH DAILY 09/10/19 Benzonatate (BENZONATATE) 100 Mg Capsule, 100 MG PO TID, CAP 09/10/19 Omeprazole (OMEPRAZOLE) 40 Mg Capsule.dr, 20 MG PO DAILY 09/10/19 JOHN LOPEZ DO Nov 13, 2019 20:17
--- NOTE | 2019-11-13 20:53 | Diagnostic Imaging Report ---
X-ray site and # of views HISTORY: Pain. COMPARISON: None available. FINDINGS: Bones/joints: No fracture or dislocation. No significant degenerative changes identified. Soft tissues: No focal soft tissue abnormality. IMPRESSION: No osseous or soft tissue abnormality identified. Signed by: Michael Shaikh MD on 11/13/2019 8:50 PM
== END 2019-11-13 22:00 | disposition home or self-care (01) ==
LOC: ER 20:20
DX: M25.561 Pain in right knee (principal); K21.9 Gastro-esophageal reflux disease without esophagitis; J45.909 Unspecified asthma, uncomplicated; M54.9 Dorsalgia, unspecified; G89.29 Other chronic pain
CPT/HCPCS: 99283

== ENCOUNTER → 2020-01-20 | Day surgery (SDC) | payer OTHER ==
[2020-01-15 13:07] LABS: BASOPHILS % 0.4 % (0.0-1.0); EOSINOPHILS # (AUTO) 0.2 (0.0-0.4); EOSINOPHILS % 2.5 % (0.0-6.0); HEMATOCRIT 45.4 % (34.2-44.1); HEMOGLOBIN 14.7 g/dL (12.0-16.0); LYMPHOCYTES # (AUTO) 1.6 (1.0-3.2); LYMPHOCYTES % 17.5 % (18.0-39.1); MEAN CORPUSCULAR HEMOGLOBIN 28.8 pg (28-32); MEAN CORPUSCULAR HGB CONC 32.4 g/dL (31-35); MEAN CORPUSCULAR VOLUME 88.8 fL (81-99); MONOCYTES # (AUTO) 0.5 (0.2-0.8); MONOCYTES % 5.9 % (4.4-11.3); NEUTROPHILS # (AUTO) 6.7 (2.1-6.9); NEUTROPHILS % 73.5 % (38.7-80.0); PLATELET COUNT 408 x10e3/uL (140-360); RED BLOOD COUNT 5.11 x10e6/uL (3.6-5.1); RED CELL DISTRIBUTION WIDTH 12.8 % (11.7-14.4)
[~2020-01-20] MED LIST changes: +CEFAZOLIN SOD 1 GM/NS 50ML 50 ML IV ONE; +DEXAMETHASONE SOD PHOS INJ 4 MG/ML VIAL ONE; +FENTANYL CITRATE/PF 100MCG/2 ML INJ ONE; +KETOROLAC TROMETHAMINE 30 MG/ML VIAL ONE; +LIDOCAINE HCL 2% LOCAL INJ 5 ML SDV VIAL INJ ONE; +MEPERIDINE HCL INJ 25 MG/ML VIAL ONE; +MIDAZOLAM HCL 2 MG/2 ML VIAL ONE; +ONDANSETRON HCL INJ 2MG/ML 2ML 2 MG/ML VIAL ONE; +PROPOFOL IV EMULSION 10 MG/ML 20 ML VIAL ONE; +SEVOFLURANE INHAL SOLN 250 ML PEN BTL ONE
[2020-01-20 09:15] VITALS: BP 108/56
--- NOTE | 2020-01-20 10:53 | Operative Report ---
DATE OF PROCEDURE: 01/20/2020 SURGEON: Corwin George MD [facility] MANAGER: Fady Penny PA-C. PREOPERATIVE DIAGNOSIS: Right knee lateral meniscal tear. POSTOPERATIVE DIAGNOSES: 1. Right knee lateral meniscal tear. 2. Grade 3 chondromalacia of the medial femoral condyle. PROCEDURE: Left knee arthroscopy, partial lateral meniscectomy, chondroplasty of the medial femoral condyle. INDICATIONS: The patient is a 49-year-old woman who has a long history of right knee pain. Her MRI shows a subtle tear of the lateral meniscus. The patient feels adamant that the symptoms justify more aggressive intervention. The risks and benefits of arthroscopy have been discussed. She has been through this fairly recently on the left side. All of her questions have been answered. The likelihood of some persistent discomfort has been discussed. She states she understands and wishes to proceed. PROCEDURE IN DETAIL: The patient was brought to the operating room and placed under general anesthetic. Her right lower extremity was prepped and draped in a sterile manner. A preoperative time-out was performed. The extremity had been exsanguinated and a proximal tourniquet was inflated to 300 mmHg. Standard arthroscopy portals were established. The knee was insufflated with sterile saline and systematically inspected. The patellofemoral groove had some grade 1 changes of chondromalacia. There was minimal synovitis in the suprapatellar pouch. The medial compartment revealed a large area of grade 3 chondromalacia in the weightbearing surface. There was a large medial parapatellar plica that demonstrated some evidence of a kissing lesion. The cruciate ligaments were intact. The medial meniscus was intact. The lateral compartment showed a tear of the posterior horn of the lateral meniscus. The weightbearing surfaces of the lateral compartment were well preserved. The attention was returned to the medial compartment. Gentle chondroplasty of the medial femoral condyle was performed to remove all unstable margins. Medial parapatellar plica was resected. The lateral meniscus was addressed with a combination of biting forceps and a meniscal shaver. This was debrided back to hook stable rim. Grade 1 changes of chondromalacia were also debrided in the lateral compartment. The knee was thoroughly irrigated with sterile saline. The arthroscopic instruments were removed and the portal incisions were closed with nylon stitches. A sterile bandage was applied. The patient was extubated and transported to the recovery room in stable condition. There was no blood loss and all needle and sponge counts were correct. Corwin George MD DR/NIHARIKA /[id number]
== END | disposition home or self-care (01) ==
LOC: OR 05:39
PROVIDERS: ATTEND Specialist
DX: S83.281A Other tear of lateral meniscus, current injury, right knee, initial encounter (principal); M94.261 Chondromalacia, right knee; M67.51 Plica syndrome, right knee; J45.909 Unspecified asthma, uncomplicated; Z88.6 Allergy status to analgesic agent; Z01.812 Encounter for preprocedural laboratory examination; Z11.59 Encounter for screening for other viral diseases; Z87.891 Personal history of nicotine dependence
CPT/HCPCS: 29881; 36415; 85025; J0690; J1100; J1885; J2001; J2175; J2250; J2405; J2704; J3010; U0002

== ENCOUNTER 2020-01-28 13:01 | Emergency (ER) | payer OTHER ==
[~2020-01-28] VITALS: Ht 170.2 cm; Wt 62.1 kg
[~2020-01-28 13:01] MED LIST changes: -CEFAZOLIN SOD 1 GM/NS 50ML 50 ML IV ONE; -DEXAMETHASONE SOD PHOS INJ 4 MG/ML VIAL ONE; -FENTANYL CITRATE/PF 100MCG/2 ML INJ ONE; -KETOROLAC TROMETHAMINE 30 MG/ML VIAL ONE; -LIDOCAINE HCL 2% LOCAL INJ 5 ML SDV VIAL INJ ONE; -MEPERIDINE HCL INJ 25 MG/ML VIAL ONE; -MIDAZOLAM HCL 2 MG/2 ML VIAL ONE; -ONDANSETRON HCL INJ 2MG/ML 2ML 2 MG/ML VIAL ONE; -PROPOFOL IV EMULSION 10 MG/ML 20 ML VIAL ONE; -SEVOFLURANE INHAL SOLN 250 ML PEN BTL ONE
== END 2020-01-28 13:25 | disposition home or self-care (01) ==
LOC: ER 13:23
DX: Z11.8 Encounter for screening for other infectious and parasitic diseases (principal); M25.561 Pain in right knee; J45.909 Unspecified asthma, uncomplicated; K21.9 Gastro-esophageal reflux disease without esophagitis; M54.9 Dorsalgia, unspecified; G89.29 Other chronic pain
CPT/HCPCS: 99282

== ENCOUNTER → 2020-07-23 | Outpatient (CLI) | payer MEDICARE | LOC: MAMMO 13:21 | PROVIDERS: ATTEND Obstetrics & Gynecology | DX: Z12.31 Encounter for screening mammogram for malignant neoplasm of breast (principal) | CPT/HCPCS: 77067 ==

== ENCOUNTER 2020-08-18 15:40 | Emergency (ER) | payer MEDICARE ==
[~2020-08-18] VITALS: Ht 170.2 cm; Wt 62.1 kg
[2020-08-18 17:27] LABS: BASOPHILS % 0.4 % (0.0-1.0); EOSINOPHILS # (AUTO) 0.3 (0.0-0.4); EOSINOPHILS % 3.7 % (0.0-6.0); HEMATOCRIT 42.3 % (34.2-44.1); HEMOGLOBIN 13.7 g/dL (12.0-16.0); LYMPHOCYTES # (AUTO) 2.2 (1.0-3.2); LYMPHOCYTES % 31.1 % (18.0-39.1); MEAN CORPUSCULAR HEMOGLOBIN 28.8 pg (28-32); MEAN CORPUSCULAR HGB CONC 32.4 g/dL (31-35); MEAN CORPUSCULAR VOLUME 88.9 fL (81-99); MONOCYTES # (AUTO) 0.4 (0.2-0.8); MONOCYTES % 5.4 % (4.4-11.3); NEUTROPHILS # (AUTO) 4.2 (2.1-6.9); NEUTROPHILS % 59.1 % (38.7-80.0); PLATELET COUNT 381 x10e3/uL (140-360); RED BLOOD COUNT 4.76 x10e6/uL (3.6-5.1); RED CELL DISTRIBUTION WIDTH 12.6 % (11.7-14.4)
[2020-08-18 17:33] LABS: CLARITY,URINE CLEAR (CLEAR); COLOR,URINE STRAW (YELLOW); KETONES,URINE NEGATIVE (NEGATIVE); LEUKOCYTE ESTERASE ,URINE NEGATIVE (NEGATIVE); NITRITE,URINE NEGATIVE (NEGATIVE); PROTEIN,URINE DIPSTICK NEGATIVE (NEGATIVE); URINE UROBILINOGEN 0.2 mg/dL (0.2 - 1)
[2020-08-18 17:46] LABS: BACTERIA,URINE FEW /HPF; EPITHELIAL CELLS,URINE MODERATE /LPF; RBC,URINE 0-5 /HPF (0-5); WBC,URINE (MAN) 0-5 /HPF (0-5)
[2020-08-18 17:47] LABS: ALANINE AMINOTRANSFERASE 17 IU/L (0-55); ALBUMIN 4.5 g/dL (3.5-5.0); ALBUMIN/GLOBULIN RATIO 1.7 (0.8-2.0); ALKALINE PHOSPHATASE 67 IU/L (40-150); ANION GAP 14.7 mmol/L (8-16); BLOOD UREA NITROGEN 12 mg/dL (7-26); BUN/CREATININE RATIO 15 (6-25); CALCIUM 9.4 mg/dL (8.4-10.2); CARBON DIOXIDE 25 mmol/L (22-29); CHLORIDE 107 mmol/L (98-107); CREATININE, SERUM 0.79 mg/dL (0.57-1.11); EST GLOMERULAR FILTRATION RATE > 60 ML/MIN (60-); GLUCOSE 100 mg/dL (74-118); POTASSIUM 3.7 mmol/L (3.5-5.1); SODIUM 143 mmol/L (136-145)
[2020-08-18] MEDS ORDERED: KETOROLAC TROMETHAMINE 30 MG/ML VIAL IV STA (18:08)
== END 2020-08-18 19:22 | disposition home or self-care (01) ==
LOC: ER 19:21
DX: R10.9 Unspecified abdominal pain (principal); M79.18 Myalgia, other site; S39.011A Strain of muscle, fascia and tendon of abdomen, initial encounter
CPT/HCPCS: 36415; 74176; 80053; 81001; 85025; 99283; J1885

== ENCOUNTER → 2020-09-06 | Outpatient (CLI) | payer MEDICARE | LOC: US 08:26 | PROVIDERS: ATTEND Internal Medicine | DX: M79.601 Pain in right arm (principal) | CPT/HCPCS: 76882 ==

== ENCOUNTER 2021-03-26 12:47 | Emergency (ER) | payer MEDICARE ==
[~2021-03-26] VITALS: Ht 170.2 cm; Wt 62.1 kg
[2021-03-26] MEDS ORDERED: IBUPROFEN 600 MG TAB PO NR (13:26)
== END 2021-03-26 14:44 | disposition home or self-care (01) ==
LOC: ER 13:22
DX: S63.501A Unspecified sprain of right wrist, initial encounter (principal); W50.2XXA Accidental twist by another person, initial encounter; Z88.8 Allergy status to other drugs, medicaments and biological substances; Z91.018 Allergy to other foods
CPT/HCPCS: 99283

== ENCOUNTER → 2022-01-20 | Outpatient (CLI) | payer MEDICARE, OTHER ==
[~2022-01-20] MED LIST changes: +BENADRYL25 M1 PO; +BLACK ELDERBER1 EACH PO; +NEURONTIN300 MG PO; +SYMBICORT 16010.2 GM INH; +TRAZODONE HCL50 MG PO; +VITAMIN C1000 MG PO; +ZINC CHELATED50 M2 PO
== END | disposition home or self-care (01) ==
LOC: RAD 11:00 → EDSTATUS 01-23 13:00
PROVIDERS: ATTEND Specialist
DX: M16.12 Unilateral primary osteoarthritis, left hip (principal); Z53.9 Procedure and treatment not carried out, unspecified reason
CPT/HCPCS: 93005

== ENCOUNTER → 2022-02-28 | Day surgery (SDC) | payer MEDICARE ==
[2022-02-24 14:09] LABS: BASOPHILS % 0.3 % (0.0-1.0); EOSINOPHILS # (AUTO) 0.3 (0.0-0.4); EOSINOPHILS % 3.7 % (0.0-6.0); HEMATOCRIT 44.4 % (34.2-44.1); HEMOGLOBIN 13.9 g/dL (12.0-16.0); LYMPHOCYTES # (AUTO) 2.2 (1.0-3.2); LYMPHOCYTES % 30.4 % (18.0-39.1); MEAN CORPUSCULAR HEMOGLOBIN 28.4 pg (28-32); MEAN CORPUSCULAR HGB CONC 31.3 g/dL (31-35); MEAN CORPUSCULAR VOLUME 90.8 fL (81-99); MONOCYTES # (AUTO) 0.4 (0.2-0.8); MONOCYTES % 5.8 % (4.4-11.3); NEUTROPHILS # (AUTO) 4.4 (2.1-6.9); NEUTROPHILS % 59.5 % (38.7-80.0); PLATELET COUNT 371 x10e3/uL (140-360); RED BLOOD COUNT 4.89 x10e6/uL (3.6-5.1)
[~2022-02-28] MED LIST changes: +BUPIVACAINE 0.25% 30ML SDV ONE; +IOPAMIDOL 200 MG/ML 20 ML VIAL IT ONE; +LIDOCAINE HCL 2% LOCAL INJ 5 ML SDV VIAL INJ ONE; +POVIDONE IODINE 0.05% 0.05 % ML PO ONE; +PROPOFOL IV EMULSION 10 MG/ML 20 ML VIAL ONE; +TRIAMCINOLONE ACET 40 MG/ML VIAL ONE
[2022-02-28 07:50] VITALS: BP 114/66
== END | disposition home or self-care (01) ==
LOC: OR 07:25
PROVIDERS: ATTEND Specialist
DX: M16.12 Unilateral primary osteoarthritis, left hip (principal); J45.909 Unspecified asthma, uncomplicated; K21.9 Gastro-esophageal reflux disease without esophagitis; F32.A Depression, unspecified; Z88.6 Allergy status to analgesic agent; Z01.810 Encounter for preprocedural cardiovascular examination; Z01.812 Encounter for preprocedural laboratory examination; Z01.818 Encounter for other preprocedural examination; Z79.899 Other long term (current) drug therapy
CPT/HCPCS: 20610; 36415; 71046; 77002; 85025; 93005; J2001; J2704; J3301; Q9967; 76000